=== PATIENT | female | born 1985 | race Caucasian/White ===

== ENCOUNTER 2017-05-01 18:53 | Emergency (ER) | payer MEDICARE ==
[~2017-05-01] VITALS: Ht 175.3 cm; Wt 108.6 kg
[2017-05-01 19:17] VITALS: BP 123/69; PULSE 72; RESP 20; O2SAT 98
[2017-05-01 20:02] LABS: BASOPHILS % (AUTO) 0.1 % (0-3); EOSINOPHILS % (AUTO) 0.8 % (0-5); MONOCYTES % (AUTO) 6.2 % (4-12); Mean Corpuscular Hemoglobin 28.2 pg (27.0-35.0); Mean Corpuscular Volume 87.4 fL (81-100); NEUTROPHILS % (AUTO) 60.5 % (40-74); Platelet Count 227 bil/L (150-400)
[2017-05-01 20:18] LABS: INR 0.96 ratio
--- NOTE | 2017-05-01 21:20 | ED.REPORT ---
HPI-Trauma Minor / Fall Date of Service May 01, 2017 ED Provider: Sathish Breaux MD A 32 year old female with a history of asthma, melanoma, adrenal insufficiency, PTSD and anxiety is referred to the ED from Urgent Care complaining of back pain. The pt slipped while walking down her stairs this morning and landed on her right hip and back. This caused immediate right hip and low back pain that has persisted since. She is able to walk but experiences significant pain when she does. The pt has been experiencing hip and back pain for several weeks, but the pain drastically increased after the fall. She has also been fatigued, weak and lightheaded with a decreased appetite for the last week, which she believes may be related to her fall. There have been no recent medication changes in the pt's regimen. Nursing Notes Stated Complaint: FALL/WEAKNESS-SENT BY Chief Complaint: Multiple Trauma/Fall Nursing Notes Reviewed: Yes Allergies: Coded Allergies: Penicillins (Verified Allergy, Severe, hives, 05/01/17) gabapentin (Verified Allergy, Severe, anaphylaxis, 05/01/17) iron dextran complex (Verified Allergy, Severe, anaphylaxis, 05/01/17) morphine (Verified Adverse Reaction, Severe, 05/01/17) General Time Seen by MD: 21:09 Chief Complaint Other (Back pain) Hx Obtained From: Patient Arrived By: Walk-in Onset Occurred: 9 - 12 hours ago Symptom Duration: Since onset Recent Healthcare: No recent hospitalization Similar Sx Previous: No Past Medical History Past Medical History asthma anxiety PTSD melanoma adrenal insufficiency Past Surgical History none reported Smoking History Never Smoker Social History Alcohol Use: Denies alcohol use Drug Use: Denies drug use Ambulatory Status Independent Review of Systems Constitutional: Reports: Fatigue, Weakness - generalized Respiratory: Denies: Non-productive cough, Shortness of breath Musculoskeletal: Reports: Back pain, Joint pain (right hip), Denies: Neck pain Neurologic: Reports: Lightheaded Complete sys rev & neg: except as marked. Cardiovascular: Denies: Chest pain GI: Denies: Abdominal pain, Vomiting Physical Exam Initial Vital Signs Vital Signs (First) Date Time Temp Pulse Resp B/P Pulse Ox O2 Delivery O2 Flow Rate FiO2 05/01/17 19:17 36.7 72 20 123/69 98 Room Air Initial VS: Reviewed, Vital signs normal General/Constitutional: Awake, Alert Appearance / Presentation: Positive: Obese, morbidly examination difficult due to body habitus Neck: Atraumatic, Supple, Full range of motion Head / Eyes: Atraumatic, Normocephalic, PERRL, EOMI ENT: Atraumatic, Airway patent, Mucous membranes moist Respiratory / Chest: Atraumatic, Breath sounds NL, Breath sounds = bilat, No respiratory distress Cardiovascular: Heart rate NL, Regular rhythm, Heart sounds NL Abdomen: Atraumatic, Soft, Non-tender Back: Full range of motion diffuse tenderness of the midline lower lumbar area and bilateral iliac wings Upper Extremity / MS: Atraumatic, Full range of motion Lower Extremity / Pelvis / MS: Atraumatic, Full range of motion Skin: Atraumatic, Color NL, No rash, Warm, Dry Neurologic: Oriented X3, Speech NL, No motor deficits, No sensory deficits Psychiatric: Affect NL, Mood NL Interpretation & Diagnostics Interpretation & Diagnostics: CT Pelvis: CONCLUSION: No acute fracture involving the pelvis. Lab Results Interpretation Result Diagram: 05/01/17195705/01/171957 Test 05/01/17 19:58 White Blood Count 8.4th/mm3 (3.8-10.1) Red Blood Count 4.29mil/mm3 (3.90-5.20) Hemoglobin 12.1g/dL (12.0-15.6) Hematocrit 37.5% (35.0-46.0) Mean Corpuscular Volume 87.4fL (81-100) Mean Corpuscular Hemoglobin 28.2pg (27.0-35.0) Mean Corpuscular Hemoglobin Concent 32.3% (32.0-37.0) Red Cell Distribution Width 14.5% (12.3-15.4) Platelet Count 227bil/L (150-400) Neutrophils (%) (Auto) 60.5% (40-74) Lymphocytes (%) (Auto) 32.2% (14-46) Monocytes (%) (Auto) 6.2% (4-12) Eosinophils (%) (Auto) 0.8% (0-5) Basophils (%) (Auto) 0.1% (0-3) Prothrombin Time 10.3sec (8.1-12.5) Prothromb Time International Ratio 0.96ratio Sodium Level 139mEq/L (134-144) Potassium Level 3.6mEq/L (3.5-5.2) Chloride Level 104mEq/L (97-108) Carbon Dioxide Level 20mmol/L (18-29) Blood Urea Nitrogen 10mg/dL (6-20) Creatinine 1.09mg/dL (0.57-1.00) Estimat Glomerular Filtration Rate 82mL/min (>59) Glucose Level 90mg/dL (60-99) Calcium Level 8.8mg/dL (8.5-10.1) Magnesium Level 2.0mg/dL (1.6-2.6) Total Bilirubin 0.2mg/dL (0.0-1.2) Aspartate Amino Transf (AST/SGOT) 13U/L (0-50) Alanine Aminotransferase (ALT/SGPT) 5U/L (0-32) Alkaline Phosphatase 68U/L (25-150) Total Protein 7.3g/dL (6.4-8.4) Albumin 4.4g/dL (3.4-5.0) Hold Stauffer Top Tube Received (Received) Lab values outside NL range: no clinical significance. Re-Eval/Medical Decision Med Decision/Clinical Course 32-year-old female with fall seen in urgent care and sent here. I find no dangerous cause for the fall and no significant injury resulting from fall. Re-Evaluation/Progress : Time of Eval: 22:58 Patient Status: Condition improved Re-Evaluation/Progress Note: Pt rechecked, who is resting comfortably. CT and lab results are discussed. The diagnosis and plan for discharge are discussed. The pt understands and agrees with the plan. All questions are addressed at this time. Counseled Regarding: Diagnosis, Lab results, Need for follow-up, When/why to return to ED Discharge & Departure Impression: Primary Impression: Fall (on) (from) other stairs and steps, initial encounter Additional Impression: Adrenal insufficiency Disposition: Home Discharge Condition All VS Reviewed: Yes Condition: Stable Patient Instructions: Fall Prevention (ED) Additional Instructions: CT scan of your pelvis and low back shows no fracture or dislocation. The labs are all normal. He was given a stress dose of steroids. Recommend that you resume your regular doses tomorrow. Talk to your regular doctor if you have further problems. Referrals: [facility] Scribe Attestation Portions of this note were transcribed by Josephine Naylor. I, Dr. Breaux personally performed the history, physical exam and medical decision-making; I reviewed and confirmed the accuracy of the information in the transcribed note. copies to: [facility] Sathish Breaux MD May 01, 2017 21:20 JOSEPHINE NAYLOR May 01, 2017 21:32
[2017-05-01] MEDS ORDERED: Hydrocortisone 50 mg/mL 2 mL Inj IVPUSH ONE (21:25)
[2017-05-01] MEDS ORDERED: Ketorolac 15 mg/mL Inj IV ONE (21:25)
[2017-05-01] MEDS ORDERED: 0.9% Sodium Chloride 1,000 ML IV ONE (21:25)
[2017-05-02] MEDS ORDERED: _HYDROcodone/APAP 5-325 mg Tablet PO PRN (00:05)
[2017-05-02 01:43] VITALS: BP 119/81; PULSE 60; RESP 16; O2SAT 98
--- NOTE | 2017-05-02 08:38 | DRSVH ---
PROCEDURE: CT PELVIS WITHOUT CONTRAST ([id number]) INDICATIONS: fall, right pelvic pain TECHNIQUE: Noncontrast 3 mm axial sections acquired through the bony pelvis. Additional 3 mm axial sections acq uired through the symptomatic hip joint, with coronal and sagittal reformats. COMPARISON: None. FINDINGS: Image quality: Excellent. Bones: No trauma found. Soft tissues: No cutaneous or subcutaneous contusion identified. IMPRESSION: Source of pain after fall is not found. Please note that MR scanning provides the "gold standard" for detection of hidden fractures, and if unusual symptomatology persists followup screenin g pelvic MRI would be recommended. Note: These findings are concordant with the preliminary interpretation. Dictated by: Fer Teixeira M.D. on 05/02/2017 at 8:34 Approved by: Fer Teixeira M.D. on 05/02/2017 at 8:36
== END 2017-05-02 00:10 | disposition home or self-care (01) ==
LOC: SED 18:53
DX: E27.40 Unspecified adrenocortical insufficiency (principal); W10.9XXA Fall (on) (from) unspecified stairs and steps, initial encounter; Y93.9 Activity, unspecified; Y92.9 Unspecified place or not applicable; Y99.9 Unspecified external cause status; F43.10 Post-traumatic stress disorder, unspecified; Z88.0 Allergy status to penicillin; Z88.5 Allergy status to narcotic agent; Z88.8 Allergy status to other drugs, medicaments and biological substances
CPT/HCPCS: 36415; 72192; 80053; 83735; 85025; 85610; 96361; 96374; 96375; 99284; J1720; J1885; J7030

== ENCOUNTER 2017-05-07 16:31 | Inpatient (IN) | payer MEDICARE ==
[~2017-05-07] VITALS: Ht 175.3 cm; Wt 115.0 kg
[2017-05-07 17:07] VITALS: BP 114/70; PULSE 78; RESP 14; O2SAT 98
--- NOTE | 2017-05-07 18:22 | ED.REPORT ---
HPI-General Illness Date of Service May 07, 2017 ED Provider: Bartolo Bearden DO Patient is a 32 year old female with a history of adrenal insufficiency and melanoma who presents to the ED complaining of fatigue for the past three weeks. Associated symptoms include lightheadedness, nausea, vomiting and headache. Patient denies diarrhea, dysuria, shortness of breath, cough or fever. She states that she just "does not feel right". The patient reports that she got a dose of iron and steroids early last week and started to feel slightly improved but then started vomiting 5 days ago. She states that she has vomited several times today. Nursing Notes Stated Complaint: ADRENAL INSUFFICIENCY, LIGHT HEADED, WEAK Chief Complaint: General Complaint Nursing Notes Reviewed: Yes Allergies: Coded Allergies: Penicillins (Verified Allergy, Severe, hives, 05/07/17) egg (Verified Allergy, Severe, Anaphylaxis, 05/07/17) gabapentin (Verified Allergy, Severe, anaphylaxis, 05/07/17) iron dextran complex (Verified Allergy, Severe, anaphylaxis, 05/07/17) morphine (Verified Adverse Reaction, Severe, 05/07/17) Scheduled Ascorbate Calcium (Vitamin C) 500 Mg Tablet 500 MG PO DAILY Budesonide (Pulmicort Flexhaler) 60 Puff/Inh Inhaler 2 PUFFS PO BID Cyanocobalamin (Vitamin B-12) (Vitamin B-12) 1,000 Mcg Tablet 2,000 MCG PO BID Ergocalciferol (Vitamin D2) (Vitamin D2) 2,000 Unit Tablet 50,000 UNIT PO DAILY Ferrous Gluconate (Ferrous Gluconate) 324 Mg Tab 648 MG PO DAILY Fludrocortisone Acetate (Fludrocortisone Acetate) 0.1 Mg Tablet 0.1 MG PO DAILY Hydrocortisone (Hydrocortisone) 10 Mg Tablet 40 MG PO DAILY Prazosin (Prazosin) 2 Mg Capsule 4-6 MG PO HS Sertraline HCl (Sertraline) 100 Mg Tablet 200 MG PO HS Topiramate (Topiramate) 25 Mg Tablet 50 MG PO DAILY Topiramate (Topiramate) 25 Mg Tablet 25 MG PO HS Scheduled PRN Albuterol HFA (Proair HFA) 8.5 Gm Hfa.aer.ad 2 PUFFS INHALATION Q4H PRN PRN ASTHMA Albuterol Neb Soln (Albuterol Neb Soln) 2.5 Mg/3 Ml Vial.neb 2.5 MG INHALATION Q4H PRN PRN ASTHMA Epinephrine (Epipen 2-Selvin) 0.3 Mg/0.3 Ml Auto.injct 0.3 MG IJ DIRECTED PRN PRN ALLERGY Hydrocodone-Acetaminophen 5-325 mg (Hydrocodone-Acetaminophen 5-325 mg) 1 Each Tablet 1 TABLET PO Q4H PRN PRN For Pain Ibuprofen (Ibuprofen) 200 Mg Capsule 400 MG PO BID PRN PRN For Pain Ondansetron ODT (Ondansetron ODT) 8 Mg Tab.rapdis 8 MG PO TID PRN PRN For Nausea Trazodone (Trazodone) 100 Mg Tablet 100-150 MG PO HS PRN PRN INSOM General Time Seen by MD: 18:09 Chief Complaint Other (fatigue) Hx Obtained From: Patient Arrived By: Walk-in Sudden in Onset?: No Onset Occurred: More than a week ago... (3 weeks) Symptom Duration: Since onset Recent Healthcare: Recent doctor visit Similar Sx Previous: Yes Past Medical History Past Medical History asthma anxiety PTSD melanoma adrenal insufficiency Past Surgical History kidney stent left shoulder repair Reports: (x2), Tonsillectomy Smoking History Never Smoker Social History Alcohol Use: Denies alcohol use Drug Use: Denies drug use Ambulatory Status Independent Review of Systems Full Review of Systems Constitutional: Reports: Fatigue, Malaise, Denies: Chills, Fever Respiratory: Denies: Non-productive cough, Shortness of breath GI: Reports: Nausea, Vomiting, Denies: Diarrhea Female: Denies: Dysuria, Skin: Denies Itching, Denies Rash Neurologic: Reports: Headache, Lightheaded Complete sys rev & neg: except as marked. Physical Exam Vital Signs Vital Signs Date Time Temp Pulse Resp B/P Pulse Ox O2 Delivery O2 Flow Rate FiO2 05/07/17 20:30 63 14 112/71 94 Room Air 05/07/17 17:07 36.8 78 14 114/70 98 Room Air Initial VS: Reviewed General/Constitutional: Awake, Alert palor Head / Eyes: Atraumatic, Normocephalic, PERRL, EOMI Neck: Atraumatic, Supple Respiratory / Chest: Atraumatic, Breath sounds NL, Breath sounds = bilat, No respiratory distress Cardiovascular: Heart rate NL, Regular rhythm, Heart sounds NL Skin: Atraumatic, Color NL, No rash, Warm, Dry Neurologic: Oriented X3, Speech NL, No motor deficits, No sensory deficits Psychiatric: Affect NL, Mood NL Interpretation & Diagnostics Lab Results Interpretation Result Diagram: 05/07/179 05/07/17 185 Test 05/07/17 18:59 05/07/17 20:31 White Blood Count 7.9th/mm3 (3.8-10.1) Red Blood Count 4.42mil/mm3 (3.90-5.20) Hemoglobin 12.4g/dL (12.0-15.6) Hematocrit 38.6% (35.0-46.0) Mean Corpuscular Volume 87.3fL (81-100) Mean Corpuscular Hemoglobin 28.1pg (27.0-35.0) Mean Corpuscular Hemoglobin Concent 32.1% (32.0-37.0) Red Cell Distribution Width 14.4% (12.3-15.4) Platelet Count 200bil/L (150-400) Neutrophils (%) (Auto) 58.9% (40-74) Lymphocytes (%) (Auto) 33.2% (14-46) Monocytes (%) (Auto) 6.4% (4-12) Eosinophils (%) (Auto) 0.8% (0-5) Basophils (%) (Auto) 0.3% (0-3) Sodium Level 142mEq/L (134-144) Potassium Level 4.2mEq/L (3.5-5.2) Chloride Level 105mEq/L (97-108) Carbon Dioxide Level 22mmol/L (18-29) Blood Urea Nitrogen 9mg/dL (6-20) Creatinine 1.10mg/dL (0.57-1.00) Estimat Glomerular Filtration Rate 81mL/min (>59) Glucose Level 91mg/dL (60-99) Lactic Acid Level 0.5mmol/L (0.4-2.0) Calcium Level 9.1mg/dL (8.5-10.1) Magnesium Level 2.0mg/dL (1.6-2.6) Total Bilirubin 0.2mg/dL (0.0-1.2) Aspartate Amino Transf (AST/SGOT) 15U/L (0-50) Alanine Aminotransferase (ALT/SGPT) 5U/L (0-32) Alkaline Phosphatase 62U/L (25-150) Total Protein 7.1g/dL (6.4-8.4) Albumin 4.4g/dL (3.4-5.0) Lipase 31U/L (13-60) Thyroid Stimulating Hormone (TSH) 2.330uIU/mL (0.450-4.500) Urine Color Yellow (YELLOW) Urine Appearance Clear (CLEAR,HAZY) Urine pH 5.5 (5.0-8.0) Urine Specific [place] 1.010 (1.003-1.035) Urine Protein Negativemg/dL (NEG,TRACE) Urine Glucose (UA) Negativemg/dL (NEGATIVE) Urine Ketones Negativemg/dL (NEGATIVE) Urine Occult Blood Negative (NEGATIVE) Urine Nitrite Negative (NEGATIVE) Urine Bilirubin Negative (NEGATIVE) Urine Urobilinogen Normalmg/dL (NORMAL) Urine Leukocyte Esterase Trace (NEGATIVE) Urine RBC 0-2/hpf (0-2) Urine WBC 0-5/hpf (0-5) Urine Epithelial Cells Moderate/hpf (NONE-MOD) Urine Crystals None seen (NONE SEEN) Urine Bacteria None/hpf (NONE-FEW) Urine Hyaline Casts None/lpf (NONE) Urine Granular Casts None seen (NONE SEEN) Urine Waxy Casts None seen (NONE SEEN) Urine Red Blood Cell Casts None seen (NONE SEEN) Urine White Blood Cell Casts None seen (NONE SEEN) Urine Mucus None seen (None Seen) Urine Trichomonas None seen (NONE SEEN) Urine Yeast None (NONE SEEN) Urinalysis Comment None Urine Culture Reflexed Indicated Urine HCG, Qualitative Negative (Negative) X-Ray Chest Interpretation Chest Xray Interpretation: IMPRESSION: No acute cardiopulmonary disease process. Dictated by: Agnieszka Marmolejo MD, PhD on 05/07/2017 at 20:57 Approved by: Agnieszka Marmolejo MD, PhD on 05/07/2017 at 20:57 View: Portable, 1 view Interpretation / Wet Read by: Interpret - Radiologist CT Head Interpretation IMPRESSION: No acute intracranial disease process. Dictated by: Agnieszka Marmolejo MD, PhD on 05/07/2017 at 21:48 Approved by: Agnieszka Marmolejo MD, PhD on 05/07/2017 at 21:50 Study: Head CT no contrast Interpretation / Wet Read by: Interpret - Radiologist Re-Eval/Medical Decision Med Decision/Clinical Course Patient reports a severe headache and history of melanoma, plan for CT. Head CT was negative. Plan to admit for obs with steroids. Intractable nausea and vomiting in spite of IV antiemetics. She is not tolerant oral steroids at this time. She will be admitted for IV hydration and IV steroids. Time of Eval: 21:16 Patient Status: No relief Re-Evaluation/Progress Note: Discussed labs, plan for admit and CT. Patient understands and agrees to plan. All questions were addressed. Consultation : Referral / Consult Name: Jose Hathaway MD Consulted With: Hospitalist Call Returned at: 21:35 Veneer Stock Layer: Agrees with eval, Agrees with plan, Accepts admit Counseled Regarding: Diagnosis, Lab results, Need for admission Discharge & Departure Primary Impression: Adrenal insufficiency Additional Impressions: Vomiting Vomiting type: unspecified Vomiting Intractability: non-intractable Nausea presence: with nausea Qualified Code: R11.2 - Nausea with vomiting, unspecified Headache Headache type: unspecified Headache chronicity pattern: acute headache Intractability: not intractable Qualified Code: R51 - Headache Disposition: ADMITTED TO HOSPITAL Discharge Condition All VS Reviewed: Yes Condition: Stable Referrals: [facility] (PCP) Og Attestation Portions of this note were transcribed by Ayala Spears. I, Dr. Bearden personally performed the history, physical exam and medical decision-making; I reviewed and confirmed the accuracy of the information in the transcribed note. Signed by: Og Webster, 05/07/17 Bartolo Bearden DO May 07, 2017 18:22 Alissa Spears May 07, 2017 18:41
[2017-05-07] MEDS ORDERED: 0.9% Sodium Chloride 1,000 ML IV ONE (18:24)
[2017-05-07] MEDS ORDERED: HYDROmorphone 0.5 mg/0.5 mL iSecure Syringe IVPUSH PRN (18:25)
[2017-05-07 19:05] LABS: BASOPHILS % (AUTO) 0.3 % (0-3); EOSINOPHILS % (AUTO) 0.8 % (0-5); MONOCYTES % (AUTO) 6.4 % (4-12); Mean Corpuscular Hemoglobin 28.1 pg (27.0-35.0); Mean Corpuscular Volume 87.3 fL (81-100); NEUTROPHILS % (AUTO) 58.9 % (40-74); Platelet Count 200 bil/L (150-400)
[2017-05-07] MEDS ORDERED: 0.9% Sodium Chloride 1,000 ML IV SCH (19:05)
[2017-05-07] MEDS ORDERED: Hydrocortisone 50 mg/mL 2 mL Inj IVPUSH ONE (19:05)
[2017-05-07] MEDS ORDERED: HYDROmorphone 0.5 mg/0.5 mL iSecure Syringe IVPUSH ONE (19:15)
[2017-05-07] MEDS: Ondansetron 2 mg/mL 2 mL Inj IVPUSH PRN ×2 (19:19→20:31)
[2017-05-07 20:30] VITALS: BP 112/71; PULSE 63; RESP 14; O2SAT 94
[2017-05-07] MEDS ORDERED: Promethazine Inj 12.5 MG in 0.9% Sodium Chloride-Pha MIX 100 ML IV ONE (20:30)
[2017-05-07] MEDS ORDERED: Promethazine Inj 12.5 MG in 0.9% Sodium Chloride-Pha MIX 100 ML IV PRN (20:40)
[2017-05-07 20:44] LABS: APPEARANCE,URINE CLEAR (CLEAR,HAZY); COLOR,URINE YELLOW (YELLOW); PH,URINE 5.5 (5.0-8.0)
[2017-05-07 20:45] LABS: OCCULT BLOOD,URINE NEGATIVE (NEGATIVE); UROBILINOGEN,URINE NORMAL (NORMAL)
--- NOTE | 2017-05-07 20:59 | DRSVH ---
PROCEDURE: X-RAY CHEST ONE VIEW, PORTABLE ([id number]) INDICATIONS: weak, chills, adrenal insuf. TECHNIQUE: One view of the chest was acquired. COMPARISON: None. FINDINGS: Surgical changes and devices: None. Lungs and pleura: No pleural effusions or pneumothorax. Lungs are clear. Mediastinum: Mediastinal contours appear normal. Heart size is normal. Bones and chest wall: No suspicious bony lesions. Overlying soft tissues appear unremarkable. IMPRESSION: No acute cardiopulmonary disease process. Dictated by: Agnieszka Marmolejo MD, PhD on 05/07/2017 at 20:57 Approved by: Agnieszka Marmolejo MD, PhD on 05/07/2017 at 20:57
[2017-05-07] MEDS ORDERED: Polyethylene Glycol (PEG) 17 Gm Powder PO PRN (21:45)
[2017-05-07] MEDS ORDERED: Alum-Mag Hydrox-Simeth 30 mL Suspension PO PRN (21:45)
--- NOTE | 2017-05-07 21:52 | DRSVH ---
PROCEDURE: CT BRAIN WITHOUT CONTRAST ([id number]) INDICATIONS: headache, vomiting , cancer TECHNIQUE: Noncontrast 4.5 mm thick angled axial sections acquired from the foramen magnum to the vertex, with c oronal reformats. COMPARISON: None. FINDINGS: Image quality: Excellent. CSF spaces: Basal cisterns are patent. No extra-axial fluid collections. Ventricles are normal in size and shape. Brain: No midline shift. No intracranial masses or hemorrhage. [place]-white matter interface is norm al. Skull and face: Calvarium and visualized facial bones are intact, without suspicious lesions. Sinuses: Visualized sinuses and mastoids are clear. IMPRESSION: No acute intracranial disease process. Dictated by: Agnieszka Marmolejo MD, PhD on 05/07/2017 at 21:48 Approved by: Agnieszka Marmolejo MD, PhD on 05/07/2017 at 21:50
[2017-05-07] MEDS ORDERED: _Albuterol 2.5 mg/3 mL Neb NEB PRN (22:15)
[2017-05-07] MEDS ORDERED: HYDR10TA12 PO (22:17)
[2017-05-07] MEDS ORDERED: IBUP200C PO (22:17)
[2017-05-07] MEDS ORDERED: ERGO2000 PO (22:17)
[2017-05-07] MEDS ORDERED: SERT100T9 PO (22:17)
[2017-05-07] MEDS ORDERED: ALBU8.5H2 INHALATION (22:17)
[2017-05-07] MEDS ORDERED: ONDA8TAB10 PO (22:17)
[2017-05-07] MEDS ORDERED: PRAZ2CAP2 PO (22:17)
[2017-05-07] MEDS ORDERED: CYAN10008 PO (22:17)
[2017-05-07] MEDS ORDERED: ASCO-294 PO (22:17)
[2017-05-07] MEDS ORDERED: BDS.4IN PO (22:17)
[2017-05-07] MEDS ORDERED: FEG324 PO (22:17)
[2017-05-07] MEDS ORDERED: TOPI-59 PO ×2 (22:17)
[2017-05-07] MEDS ORDERED: TRAZ-118 PO (22:17)
[2017-05-07] MEDS ORDERED: HYDR-4003 PO (22:17)
[2017-05-07] MEDS ORDERED: ALBU2.5V4 INHALATION (22:17)
[2017-05-07] MEDS ORDERED: EPIN0.3P2 IJ (22:19)
[2017-05-07] MEDS ORDERED: FLUD0.1T PO (22:19)
--- NOTE | 2017-05-07 22:22 | PCM.HPMED ---
Subjective Date of Service May 07, 2017 Primary Provider: Admitting Physician: Jose Hathaway MD Primary Care Physician: Santiago Attending Physician: Jose Hathaway MD Chief Complaint: Fatigue, nausea, vomiting History of Present Illness: 32-year-old woman with history of primary adrenal insufficiency, asthma, and hospitalizations for adrenal insufficiency requiring IV steroids and fluids presents with a week and a half of worsening fatigue, nausea, lightheadedness. She was seen in the emergency department 6 days ago by referral from urgent care after having a fall and hurting her hip, at that time she received stress dose of hydrocortisone and fluids she said that she felt better transiently but today she was unable to get up due to fatigue and weakness, she has been vomiting, she has had a cough, she has had a rash that she has been treating with topical hydrocortisone cream that has been moving around her body she describes as itchy with red bumps. 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 She has had increasing chills, no weight gain, endorses headache and is concerned by it because it is more severe than they typically are, she is describing auras and scotoma coming and going. She increased to her stress dose of hydrocortisone at home but has been vomiting it up. She has not been able to keep down any food or water for the past few days and describes her vomit as just being mucus, last episode of emesis was one hour ago in the emergency department for which she received promethazine and ondansetron. She has had hospitalizations for adrenal insufficiency which she described as lasting 3-4 days and she is sent home on a PICC line or fluids and IV corticosteroids for up to 6 weeks, she recounts this happens about 3-4 times a year. She states her headache has never been this bad. The ER vitals were completely normal Hematology was pristine, CMP is without abnormality other than creatinine 1.1. Lactic acid 0.5, TSH 2.33, liver enzymes normal. Urinalysis trace leukocyte esterase without ketones, moderate epithelial cells. HCG negative. Chest x-ray was normal Brain CT showed no acute intracranial disease process. Patient admitted for adrenal insufficiency necessitating IV corticosteroids fluids. Review of Systems: A comprehensive review of systems was conducted with the patient and found to be negative except as above in the history of presenting illness. Allergies Coded Allergies: Penicillins (Verified Allergy, Severe, hives, 05/07/17) egg (Verified Allergy, Severe, Anaphylaxis, 05/07/17) gabapentin (Verified Allergy, Severe, anaphylaxis, 05/07/17) iron dextran complex (Verified Allergy, Severe, anaphylaxis, 05/07/17) morphine (Verified Adverse Reaction, Severe, 05/07/17) Home Medications Scheduled Ascorbate Calcium (Vitamin C) 500 Mg Tablet 500 MG PO DAILY Budesonide (Pulmicort Flexhaler) 60 Puff/Inh Inhaler 2 PUFFS PO BID Cyanocobalamin (Vitamin B-12) (Vitamin B-12) 1,000 Mcg Tablet 2,000 MCG PO BID Ergocalciferol (Vitamin D2) (Vitamin D2) 2,000 Unit Tablet 50,000 UNIT PO DAILY Ferrous Gluconate (Ferrous Gluconate) 324 Mg Tab 648 MG PO DAILY Fludrocortisone Acetate (Fludrocortisone Acetate) 0.1 Mg Tablet 0.1 MG PO DAILY Hydrocortisone (Hydrocortisone) 10 Mg Tablet 40 MG PO DAILY Prazosin (Prazosin) 2 Mg Capsule 4-6 MG PO HS Sertraline HCl (Sertraline) 100 Mg Tablet 200 MG PO HS Topiramate (Topiramate) 25 Mg Tablet 50 MG PO DAILY Topiramate (Topiramate) 25 Mg Tablet 25 MG PO HS Scheduled PRN Albuterol HFA (Proair HFA) 8.5 Gm Hfa.aer.ad 2 PUFFS INHALATION Q4H PRN PRN ASTHMA Albuterol Neb Soln (Albuterol Neb Soln) 2.5 Mg/3 Ml Vial.neb 2.5 MG INHALATION Q4H PRN PRN ASTHMA Epinephrine (Epipen 2-Selvin) 0.3 Mg/0.3 Ml Auto.injct 0.3 MG IJ DIRECTED PRN PRN ALLERGY Hydrocodone-Acetaminophen 5-325 mg (Hydrocodone-Acetaminophen 5-325 mg) 1 Each Tablet 1 TABLET PO Q4H PRN PRN For Pain Ibuprofen (Ibuprofen) 200 Mg Capsule 400 MG PO BID PRN PRN For Pain Ondansetron ODT (Ondansetron ODT) 8 Mg Tab.rapdis 8 MG PO TID PRN PRN For Nausea Trazodone (Trazodone) 100 Mg Tablet 100-150 MG PO HS PRN PRN INSOM PMH asthma anxiety PTSD melanoma adrenal insufficiency Surgical History Kidney stents Tonsillectomy Left shoulder repair C-sections 2 Multiple melanoma removals from left face, reports having this done yearly. Family History Mother: Trigeminal neuralgia, hypothyroidism. Father: Homeless, alcohol abuse. Social History Hx Alcohol Use: No Hx Substance Use: No Smoking Status: Never Smoker Exam Vital Signs Vital Sign - Last Date Time Temp Pulse Resp B/P Pulse Ox O2 Delivery O2 Flow Rate FiO2 05/07/17 20:30 63 14 112/71 94 Room Air 05/07/17 17:07 36.8 Exam General: Laying in bed, asleep, easily awoken to verbal stimuli. Obese HEENT: Facial asymmetry secondary to multiple surgeries to left divine-face, EOMI grossly, pupils equal round and reactive bilaterally, because membranes moist, conjunctiva pink, Cardiovascular: Regular rate and rhythm, no clicks murmurs rubs, peripheral pulses 2/4 equal bilaterally Pulmonary: Clear to auscultation bilaterally, no W/R/R. Abdominal: Soft to palpation, bowel sounds present 4, no hepatosplenomegaly. Negative rebound. Extremities: No edema appreciated. No tenderness, asymmetry. Neuro: Neurologically grossly intact, strength is equal bilaterally upper and lower extremities. MSK: Able to move extremities on their own volition, strength 4 out of 5 equal bilaterally to upper and lower extremities. Psych: AO4, tired affect. Speech is normal, nonpressured, not slurring. Lab and Diagnostics Result Diagram: 05/07/[id number]/07/171858 X-Rays, CTs and MRIs Chest x-ray performed 05/07/2017 IMPRESSION: No acute cardiopulmonary disease process. Dictated by: Agnieszka Marmolejo MD, PhD on 05/07/2017 at 20:[address] without contrast performed 05/07/2017 IMPRESSION: No acute intracranial disease process. 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 Acute on chronic adrenal insufficiency, present on admission, active Evidenced Worsening fatigue, nausea, vomiting, weakness, headaches, unable to keep down home hydrocortisone. Attributed to viral gastritis. Blood pressure stable, no hyperpigmentation. Received 100 mg IV hydrocortisone succinate in the emergency department, IV fluids Hydrocortisone succinate IV 100 mg every 6 hours Assess Serum vitamin D level- patient reportedly on 50,000 international units a day. Hold home fludrocortisone Assessment electrolytes every morning Acute viral illness, present on admission, active Nausea, vomiting, abdominal pain, white blood cell count is normal, she also claims to have a dry cough that was not appreciated during exam, additionally has a transient petechial pruritic rash that is responsive to hydrocortisone cream. No diarrhea Respiratory PCR viral panel IV fluids, normal saline Promethazine and ondansetron as needed for nausea Acute on chronic migraine, present on admission, active Patient describes auras, scotomas, throbbing. Likely precipitated by dehydration and physiologic stress Patient takes topiramate for treatment and prophylaxis, will continue. Acetaminophen, IV fluids. EKG to assess QTC before administering additional abortive medications. ( Benadryl 25 mg IV followed by Compazine 10 mg IV, with additional 30 mg IV Toradol if necessary.) Chronic asthma, present on admission, Stable Continue Pulmicort as needed Continue albuterol inhaler as needed Continue albuterol nebulizer as needed Chronic anxiety and PTSD, POA, Stable Continue sertraline, prazosin, trazodone EKG to assess QTC Chronic obesity, present on admission, active BMI 35.8 Dietitian consult ordered. Patient admitted to inpatient status with anticipated length of stay greater than 2 mid nights, based on complexity of symptoms, treatment, and anticipated complications. GI prophylaxis with famotidine DVT prophylaxis subcutaneous heparin Pain management acetaminophen, topiramate. Pain Evaluation: Pain not Controlled GI Prophylaxis: H2 nathalie VTE Prophylaxis: Sub-Q Heparin (Unfractionated) Resuscitation Status: CPR: Attempt Resuscitation Attending Statement The patient was seen and examined together with Dr. Adorno on 05/07 and I agree with the history, exam and plan as outlined in the note above. Ki Lares DO May 07, 2017 22:22 Jose Hathaway MD May 08, 2017 02:37
[2017-05-07 22:30] VITALS: BP 114/77; PULSE 66; RESP 16; O2SAT 96
[2017-05-07] MEDS: 0.9% Sodium Chloride 1,000 ML IV SCH (23:42)
[2017-05-08] MEDS: Ondansetron 2 mg/mL 2 mL Inj IVPUSH PRN ×5 (00:05→18:52)
[2017-05-08] MEDS: Heparin 5,000 Unit/mL Inj SUBQ SCH ×3 (00:08→17:49)
[2017-05-08] MEDS ORDERED: HYDROmorphone 1 mg/mL Inj IVPUSH ONE (00:55)
[2017-05-08] MEDS: Promethazine Inj 12.5 MG in Dextrose 5%-Pha MIX 50 ML IV PRN ×2 (01:46→07:01)
--- NOTE | 2017-05-08 02:38 | NUR ---
Arrival to the unit Patient arrived to floor at 2220 via ED gurney. A&OX3, and able to ambulate to hospital bed via SBA. Complains of abd pain, a headache and nausea. Tylenol PO given, but upon reassessment patient states no relief was provided. paged to notify of patients condition, and received orders for 1mg Dilaudid IVP once, a K-pad, and IV Phenergan due to patient getting better relief from it than zofran. Upon reassessment of IV Dilaudid the patient states that the pain is still present, but the throbbing in her head that she was experiencing has subsided. Patient has also been able to get enough relief to fall asleep as well at this time. IV NS is running at 125cc/hr, rand alarm is on due to previous fall, and bed is in locked and low position. Will continue to monitor and continue Q1 hour checks.
[2017-05-08 02:45] VITALS: BP 103/69; PULSE 63; RESP 16; O2SAT 95
[2017-05-08] MEDS: Hydrocortisone 50 mg/mL 2 mL Inj IVPUSH SCH ×3 (02:56→14:30)
[2017-05-08] MEDS ORDERED: Ketorolac 15 mg/mL Inj IVPUSH ONE (05:05)
[2017-05-08 05:34] LABS: BASOPHILS % (AUTO) 0.1 % (0-3); EOSINOPHILS % (AUTO) 0.3 % (0-5); MONOCYTES % (AUTO) 2.9 % (4-12); Mean Corpuscular Hemoglobin 28.1 pg (27.0-35.0); Mean Corpuscular Volume 88.4 fL (81-100); NEUTROPHILS % (AUTO) 74.4 % (40-74); Platelet Count 184 bil/L (150-400)
[2017-05-08 06:38] VITALS: BP 117/73; PULSE 67; RESP 18; O2SAT 96
[2017-05-08] MEDS ORDERED: Albuterol 2.5 mg/3 mL Inhalation Solution NEB PRN (07:00)
[2017-05-08] MEDS: Ascorbic Acid 500 mg Tablet PO SCH (07:50)
[2017-05-08] MEDS: Fluticasone 100 mCg Inhaler INHALATION SCH ×2 (08:01→22:59)
[2017-05-08] MEDS: Famotidine Inj 20 MG in IV Premix 1 EACH IV SCH ×2 (08:04→21:40)
[2017-05-08 08:15] VITALS: BP 111/74; PULSE 64; RESP 14; O2SAT 96
--- NOTE | 2017-05-08 09:08 | NUR ---
Social work note - Initial Assessment Carolynn Dinh is a 32 yr old who was admitted for adrenal insufficiency - intractable vomiting. EMR reviewed: Pt has Medicare, Her PCP recently switched - [facility]. No DPOA - [employer] provided paperwork and education. No VA or LTC insurance. Se attached CM initial assessment - Readmit score not available. [employer] COUNTER MANAGER met with pt - introduced D/C planning and explained SW role. Pt lives at home in [place] with her two children ages 14,4. She works at [employer]. She is independent at baseline, no DME. She states that she has close friends who are helping with her kids while she is admitted. Pt plans to d/c home with no anticipated needs. [employer] MA[employer]GER provided support and will follow if needs arise. Plan: Home with friend in POV - No needs identified. HAZEL Beatty Addendum: 05/08/17 at 0950 by ALKA BRIGHT Amended: Links added.
[2017-05-08] MEDS: 0.9% Sodium Chloride 1,000 ML IV SCH ×3 (10:12→23:54)
[2017-05-08] MEDS: HYDROmorphone 0.5 mg/0.5 mL iSecure Syringe IVPUSH PRN ×3 (10:12→21:47)
[2017-05-08 10:22] LABS: BASOPHILS % (AUTO) 0.1 % (0-3); EOSINOPHILS % (AUTO) 0 % (0-5); MONOCYTES % (AUTO) 2.6 % (4-12); Mean Corpuscular Hemoglobin 27.9 pg (27.0-35.0); Mean Corpuscular Volume 87.3 fL (81-100); NEUTROPHILS % (AUTO) 82.4 % (40-74); Platelet Count 195 bil/L (150-400)
[2017-05-08 10:54] LABS: Unsaturated Iron Binding 84.4 ug/dL
[2017-05-08] MEDS: Promethazine Inj 12.5 MG in 0.9% Sodium Chloride 100 ML IV PRN ×3 (11:51→22:19)
--- NOTE | 2017-05-08 14:26 | PCM.PNMED ---
Subjective Date of Service May 08, 2017 Subjective Complains of ongoing abdominal pain and nausea. Denies any other new issues/ complaints Exam Vital Signs Vital Sign - Last Date Time Temp Pulse Resp B/P Pulse Ox O2 Delivery O2 Flow Rate FiO2 05/08/17 08:15 37.0 64 14 111/74 96 Room Air Intake and Output 05/07/17 05/07/17 05/08/17 Cumulative From/Thru 15:00 23:00 07:00 05/07/17 17:07 - 05/08/17 06:56 Intake Total 2000 ml 1865 ml 3865 ml Output Total 725 ml 725 ml Balance 2000 ml 1140 ml 3140 ml Intake Oral 1072 ml 1072 ml IV Total 2000 ml 793 ml 2793 ml Output Urine Total 725 ml 725 ml # Voids 2 2 # Bowel Movements 0 0 General: Alert, Oriented X3, Cooperative, No Acute Distress Head: Normal Eyes: Scleral Anicteric Nose: Mucous Membr Moist/[place] Mouth: Mucous Membr Moist/[place] Neck: Supple Chest & Lungs: Chest Wall Normal, Clear to auscultation & percussion Cardiovascular: Regular Rate/Rhythm Pulses: NL carotid, radial, femoral, DP, PT Abdomen: Tender, Non-distended, Normoactive bowel tones, Soft Extremities: No cyanosis/clubbing/edma bilat Neurological: Grossly Neurologically Intact, Normal Speech IVs and Medications Medications Reviewed: Medications were reviewed in detail Lab and Diagnostics Result Diagram: 05/08/17 1013 05/08/17 0436 X-Rays, CTs and MRIs Chest x-ray performed 05/07/2017 IMPRESSION: No acute cardiopulmonary disease process. Dictated by: Agnieszka Marmolejo MD, PhD on 05/07/2017 at 20:[address] without contrast performed 05/07/2017 IMPRESSION: No acute intracranial disease process. 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 # Acute on chronic abdominal pain with associated nausea/vomiting, present on admission. Ongoing - Reviewed records from her recent PCP visit at [facility]. - ? If presenting symptoms due to irritable bowel syndrome vs acute viral gastroenteritis vs other - Continue with supportive care including IV Dilaudid prn - Will check CT abdomen. If unrevealing and symptoms persist will consider further GI consult # Acute on chronic adrenal insufficiency, present on admission, active - Evidenced Worsening fatigue, nausea, vomiting, weakness, headaches, unable to keep down home hydrocortisone. - Blood pressure stable, no hyperpigmentation. - Received 100 mg IV hydrocortisone succinate in the emergency department, IV fluids - Hydrocortisone succinate IV 100 mg every 6 hours continued on admission but will try to restart home PO meds # Suspected acute viral illness on admission. - No obvious source of infection - Continue with supportive care including promethazine and ondansetron as needed for nausea # Acute on chronic migraine, present on admission, active - Patient takes topiramate for treatment and prophylaxis, will continue. - Acetaminophen, IV fluids. # Chronic asthma, present on admission, Stable - Continue Pulmicort as needed - Continue albuterol inhaler as needed - Continue albuterol nebulizer as needed # Chronic anxiety and PTSD, POA, Stable - Continue sertraline, prazosin, trazodone # Chronic obesity, present on admission, active - BMI 35.8 - Dietitian consult ordered. Dispo: 1-2 days GI Prophylaxis: H2 nathalie VTE Prophylaxis: Sub-Q Heparin (Unfractionated) VTE Mechanical Devices: Intermittant Pneumatic CD Resuscitation Status: CPR: Attempt Resuscitation Colt Connell May 08, 2017 14:26 Patient admitted to inpatient status with anticipated length of stay greater than 2 mid nights, based on complexity of symptoms, treatment, and anticipated complications. GI prophylaxis with famotidine DVT prophylaxis subcutaneous heparin Pain management acetaminophen, topiramate. GI Prophylaxis: H2 nathalie VTE Prophylaxis: Sub-Q Heparin (Unfractionated) VTE Mechanical Devices: Intermittant Pneumatic CD Resuscitation Status: CPR: Attempt Resuscitation Colt Connell May 08, 2017 14:26
[2017-05-08 14:30] VITALS: BP 102/66; PULSE 60; RESP 18; O2SAT 97
[2017-05-08] MEDS: Hydrocortisone 10 mg Tablet PO SCH (17:41)
--- NOTE | 2017-05-08 18:35 | NUR ---
Nausea Pt A/0 x3. Pt complains of nausea, administering Zofran q4 and Phenergan q4. Tolerated jello, however had emesis x1 after eating a popsicle after her jello. Also, complains of pain 7-9/10, administering IV Dilaudid q4 along with po APAP 650mg q6 with good effect. Has abdominal/pelvis CT ordered for this evening. Pt is slowly working on po contrast for scan.
--- NOTE | 2017-05-08 19:46 | DRSVH ---
PROCEDURE: CT ABDOMEN AND PELVIS WITH CONTRAST ([id number]) INDICATIONS: abd pain TECHNIQUE: After the administration of oral and intravenous contrast, 5 mm thick sections acquired from the diap hragms to the symphysis. 5 mm thick coronal and sagittal reformats were performed. For radiation do se reduction, the following was used: automated exposure control, adjustment of mA and/or kV accordi ng to patient size. COMPARISON: [facility], CT, CT PELVIS WO CON, 05/01/2017, 22:13. FINDINGS: Image quality: Excellent. ABDOMEN: Lung bases: Lung bases are clear. Heart size is normal. Solid organs: Liver and spleen are normal in size and enhancement. Gallbladder appears normal. Ashil iary system is non-dilated. Pancreas enhances normally. No adrenal nodules. Kidneys are normal in size and enhancement, without hydronephrosis. Peritoneum and bowel: Stomach, small bowel, and colon loops are normal in caliber and wall thickness . No free fluid or air. Nodes and vessels: No retroperitoneal or mesenteric adenopathy. Aorta and inferior vena cava are no rmal in caliber. Miscellaneous: No ventral hernias. PELVIS: Genitourinary: Bladder wall thickness is normal. Miscellaneous: No inguinal hernias or adenopathy. Bones: No suspicious bony lesions. No vertebral body compression fractures. IMPRESSION: Normal appendix found, no sign of biliary distention, no urinary tract abnormality seen. Source of current symptoms is not found. Dictated by: Fer Teixeira M.D. on 05/08/2017 at 19:44 Approved by: Fer Teixeira M.D. on 05/08/2017 at 19:45
[2017-05-08 20:08] VITALS: BP 112/74; PULSE 53; RESP 16; O2SAT 95
[2017-05-09] MEDS: Ondansetron 2 mg/mL 2 mL Inj IVPUSH PRN ×6 (00:24→23:21)
[2017-05-09] MEDS: Promethazine Inj 12.5 MG in 0.9% Sodium Chloride 100 ML IV PRN (02:26)
[2017-05-09] MEDS: HYDROmorphone 0.5 mg/0.5 mL iSecure Syringe IVPUSH PRN ×4 (03:37→22:43)
[2017-05-09 05:47] VITALS: BP 108/72; PULSE 74; RESP 18; O2SAT 99
--- NOTE | 2017-05-09 05:56 | NUR ---
Nausea / pain Moderate nausea adequately controlled with alternating Zofran and Phenergan Q4 hours each. Tolerated eating several jellos and crackers, anticipating ordering breakfast in am; no emesis in night. Pain marginally controlled with alternating Tylenol and IV Dilaudid Q6 hours each. Observed able to get some intermittent sleep through night. Hourly rounding ongoing.
[2017-05-09] MEDS: Promethazine Inj 12.5 MG in 0.9% Sodium Chloride 50 ML IV PRN ×4 (06:17→20:57)
[2017-05-09 07:49] VITALS: BP 104/64; PULSE 63; RESP 18; O2SAT 97
[2017-05-09] MEDS: 0.9% Sodium Chloride 1,000 ML IV SCH ×2 (08:39→18:33)
[2017-05-09] MEDS: Famotidine Inj 20 MG in IV Premix 1 EACH IV SCH ×2 (08:39→19:39)
[2017-05-09] MEDS: Heparin 5,000 Unit/mL Inj SUBQ SCH ×3 (08:45→16:59)
[2017-05-09] MEDS: Fluticasone 100 mCg Inhaler INHALATION SCH ×2 (10:31→19:39)
[2017-05-09] MEDS: Hydrocortisone 10 mg Tablet PO SCH ×3 (10:43→19:38)
--- NOTE | 2017-05-09 10:51 | NUR ---
Social Work: Readiness for Discharge/Multidisciplinary Rounds D: EMR reviewed. Pt is on day 2 of hospitalization. Pt discussed in multidisciplinary rounds. Per multidisciplinary rounds, pt is medically stable for discharge home today. Per MD, pt's dilauted to be discontinued today prior to discharge. Per RN, pt may possibly appeal discharge. SW notified UR RN. No MD orders received. No SW discharge needs identified. SW will continue to follow. A: Pt is independent at baseline with capacity for self-care. Pt states she has close friends who are helping with her kids while she is admitted. Pt plans to discharge home with no anticipated needs. SW provided support and will follow if needs arise. P: Pt anticipate to transport home with friend via POV - No SW discharge needs identified. No MD orders received. SW updated UR that pt may appeal discharge. SW will continue to follow. DELIA Silva
[2017-05-09] MEDS: Ascorbic Acid 500 mg Tablet PO SCH (13:53)
[2017-05-09] MEDS: HYDROcodone-APAP 5-325 mg Tablet PO PRN ×2 (13:57→20:04)
--- NOTE | 2017-05-09 14:05 | PCM.PNMED ---
Subjective Date of Service May 09, 2017 Subjective Complains of ongoing abdominal pain and nausea. Denies any other new issues/ complaints. She is wondering if she should be continued on IV Steroids Exam Vital Signs Vital Sign - Last Date Time Temp Pulse Resp B/P Pulse Ox O2 Delivery O2 Flow Rate FiO2 05/09/17 07:49 36.7 63 18 104/64 97 Room Air Intake and Output 05/08/17 05/08/17 05/09/17 Cumulative From/Thru 15:00 23:00 07:00 05/07/17 17:07 - 05/09/17 06:20 Intake Total 1774 ml 2983 ml 8622 ml Output Total 700 ml 1100 ml 2525 ml Balance 1074 ml 1883 ml 6097 ml Intake Oral 687 ml 1511 ml 3270 ml IV Total 1087 ml 1472 ml 5352 ml Output Urine Total 700 ml 1100 ml 2525 ml # Voids 2 # Bowel Movements 0 0 Exam General: Alert, Cooperative, No Acute Distress Head: Normal Eyes: Scleral Anicteric Nose: Mucous Membr Moist/[place] Mouth: Mucous Membr Moist/[place] Neck: Supple Chest & Lungs: Chest Wall Normal, Clear to auscultation bilat Cardiovascular: Regular Rate/Rhythm Pulses: NL DP, PT Abdomen: Tender, Non-distended, Normoactive bowel tones, Soft Extremities: No cyanosis/clubbing/edema bilat Neurological: Grossly Neurologically Intact, Normal Speech IVs and Medications Medications Reviewed: Medications were reviewed in detail Lab and Diagnostics Result Diagram: 05/08/17 1013 05/08/17 0436 X-Rays, CTs and MRIs Chest x-ray performed 05/07/2017 IMPRESSION: No acute cardiopulmonary disease process. Dictated by: Agnieszka Marmolejo MD, PhD on 05/07/2017 at 20:[address] without contrast performed 05/07/2017 IMPRESSION: No acute intracranial disease process. 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 # Acute on chronic abdominal pain with associated nausea/vomiting, present on admission. Ongoing - Reviewed records from her recent PCP visit at [facility]. - ? If presenting symptoms due to irritable bowel syndrome vs acute viral gastroenteritis vs other - CT Abd/Pelvis unremarkable - Continue with supportive care including IV Dilaudid prn # Acute on chronic adrenal insufficiency, present on admission, active - Blood pressure stable, no hyperpigmentation. - Received 100 mg IV hydrocortisone succinate in the emergency department, IV fluids - Hydrocortisone succinate IV 100 mg every 6 hours continued on admission but changed to home PO meds - Endocrinology consulted on 05/09/17. Will followup with recs # Suspected acute viral illness on admission. - No obvious source of infection - Continue with supportive care including promethazine and ondansetron as needed for nausea # Acute on chronic migraine, present on admission, active - Patient takes topiramate for treatment and prophylaxis, will continue. - Acetaminophen, IV fluids. # Chronic asthma, present on admission, Stable - Continue Pulmicort as needed - Continue albuterol inhaler as needed - Continue albuterol nebulizer as needed # Chronic anxiety and PTSD, POA, Stable - Continue sertraline, prazosin, trazodone # Chronic obesity, present on admission, active - BMI 35.8 - Dietitian consult ordered. Dispo: 1-2 days pending improved GI symptoms GI Prophylaxis: H2 nathalie VTE Prophylaxis: Sub-Q Heparin (Unfractionated) VTE Mechanical Devices: Intermittant Pneumatic CD Resuscitation Status: CPR: Attempt Resuscitation Colt Connell May 09, 2017 14:05
[2017-05-09 15:17] VITALS: BP 118/74; PULSE 66; RESP 18; O2SAT 94
[2017-05-09 15:25] VITALS: BP 119/74
[2017-05-09 15:41] VITALS: BP 134/79
--- NOTE | 2017-05-09 15:47 | PCM.CHPMED ---
Subjective Date of Service: May 09, 2017 Primary Physician: Admitting Physician: Jose Hathaway MD Primary Care Physician: Santiago Attending Physician: Colt Connell Chief Complaint: Chief Complaint: Initial Endocrinology Consultation: Asked by to consult regarding management of adrenal insufficiency. History of Present Illness: The patient is a 32-year-old woman with a history of adrenal insufficiency since 2010. She was diagnosed and has been managed by Dr. Livingston at [facility]. Details of original diagnosis are unclear. She was told by doctors at that time that she did not fit any of the usual categories. Over the past 7 years she has had hospital treatment requiring stress dose steroids are approximately 7 occasions. Some of these have been postoperative and others have been spontaneous. She has been managed on relatively high doses of hydrocortisone and has managed to taper to 40 mg a day, taken as 20 every morning, 10 at noon, 10 at 5-6 PM daily. Her usual stress dose coverage is to double to 80 mg daily for several days in the event of minor illness. 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 Approximate 6 days prior to admission she began to experience nausea, diffuse abdominal pain and anorexia. She fell on the stairs and experienced hip pain and was evaluated in urgent care. Upon referral to the ED she received steroids briefly but then was discharged home. She has been unable to hold down medications for approximately 4 days prior to admission, and felt herself becoming dehydrated. Postural lightheadedness but no syncope. No significant diarrhea. She was evaluated in urgent care approximately 4 days prior to admission and told to take stress dose steroids at home, but was unable due to nausea. She returned home and contacted her recreation counselor who referred her to urgent care. At the second visit to urgent care she was referred for hospitalization. The time of admission she was treated with 100 mg hydrocortisone every 6 hours. Since admission her vomiting has improved and she is now able to take pills but limited oral food and fluid intake. Review of Systems: 11 systems reviewed. Significant findings as noted above. Additional findings include mild increase in asthma dyspnea. Continuous headache. She acknowledges increased stress with insomnia which she recognizes may have contributed to her health problems over the past 3 weeks. Menstrual cycle is intact albeit slightly irregular. No hypothyroidism. 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 No adrenal insufficiency, premature menopause, vitiligo, pernicious anemia, or other autoimmune disease. Social History Occupation: director at [employer] Alcohol Use: Nox Substance Use: Yes ( marijuana 10 years ago) Smoking Status: Never Smoker Additional Information Single mother and daughter 14-year-old, some 4-year-old. Recently relocated to this area. Exam Vital Signs Vital Sign - Last Date Time Temp Pulse Resp B/P Pulse Ox O2 Delivery O2 Flow Rate FiO2 05/09/17 15:25 119/74 05/09/17 15:17 36.6 66 18 94 Room Air Intake and Output 05/08/17 05/08/17 05/09/17 Cumulative From/Thru 15:00 23:00 07:00 05/07/17 17:07 - 05/09/17 06:20 Intake Total 1774 ml 2983 ml 8622 ml Output Total 700 ml 1100 ml 2525 ml Balance 1074 ml 1883 ml 6097 ml Intake Oral 687 ml 1511 ml 3270 ml IV Total 1087 ml 1472 ml 5352 ml Output Urine Total 700 ml 1100 ml 2525 ml # Voids 2 # Bowel Movements 0 0 Blood pressure lying 118/74, 66, sitting 119/74 General: Obese woman slightly dysphoric but no acute distress HEENT: sclerae anicteric, oral mucosa moist, no increase mucosal pigmentation Neck: Supple, no adenopathy, no JVD, no goiter Chest: clear to auscultation, no wheezing Cardiac: S1S2, regular, no murmur Abdomen: BS normal, diffuse mild tenderness bilateral lower quadrants and left mid quadrant Extremities: No pitting edema Neuro: A&O, cranial nerves symmetric, motor strength 5/5, coordination normal Lab and Diagnostics Labs No eosinophilia Result Diagram: 05/08/17 1013 05/08/17 0436 X-Rays, CTs and MRIs PROCEDURE: CT ABDOMEN AND PELVIS WITH CONTRAST ([id number]) IMPRESSION: Normal appendix found, no sign of biliary distention, no urinary tract abnormality seen. Source of current symptoms is not found. Dictated by: Fer Teixeira M.D. on 05/08/2017 at 19:44 . Assessment & Plan Assessment This 32-year-old woman has long-standing diagnosis of adrenal insufficiency on replacement hydrocortisone and fludrocortisone. The details and accuracy of her initial diagnosis are not clear. Her current hospitalization seems to have been precipitated by 3 weeks of vague constitutional symptoms. At the outset she was able to take her usual high dose daily hydrocortisone; hence, initial cause of this was not addisonian crisis. For partially 5 days prior to admission however she has been unable to maintain her usual maintenance glucocorticoid regimen. Some of her increased abdominal complaints may be due to glucocorticoid deficiency in recent days, even if this was not the underlying cause. She gives a history of requiring high doses of glucocorticoid replacement and slightly prolonged stress dose coverage at times of illness. With regard to the cause of her multiple symptoms over the past 3 weeks, it seems that infections or other acute medical illnesses been excluded. Her history of increased stress with significant sleep disorder is notable. She seems open to the idea that stress may have precipitated the current episode. She appears to have functional GI disorders that are long-standing, likely worsened with recent sleep disorder and stress. With regard to her current adrenal sufficiency management, the main issues are: 1) recovery from vomiting and inability to take by mouth medications, 2) adequate hydration with no vomiting or diarrhea, and 3) no orthostatic hypotension. If these 3 criteria met that I believe she is safe to discharge home on her usual stress dose 80 mg per day hydrocortisone plus her usual Florinef to continue for 2-3 more days with further recovery. She seems amenable to taking these medications orally as she is no longer vomiting or pills. I took the liberty of adding aldosterone, renin activity and DHEAS to her morning labs. These will not return in time. Although her aldosterone may be suppressed by her current Florinef, if aldosterone and DHEAS are normal it would suggest preserved adrenal function. Recommendations: # Oral hydrocortisone 80 mg per day (40, 40 or 40, 20, 20) # Continue Florinef 0.1 mg per day # Check orthostatic blood pressure # Okay to discharge from endocrine perspective when able to take by mouth and maintain hydration # She is moved to this area and will benefit from referral to [facility] Endocrinology clinic at time of discharge. Problems: Pain Evaluation: Pain not Controlled GI Prophylaxis: H2 nathalie VTE Prophylaxis: Sub-Q Heparin (Unfractionated) VTE Mechanical Devices: Intermittant Pneumatic CD Resuscitation Status: CPR: Attempt Resuscitation Time spent 60 minutes Filemon Pena MD May 09, 2017 15:47
--- NOTE | 2017-05-09 19:12 | NUR ---
Late Medications/Emesis Per pt request, d/t nausea and multiple pills at AM, doses divided up to make it easier for pt to tolerate. Pt did receive full 40mg PO steroid as well as her additional 40mg PO at 1700. Emesis: Pt attempting solid foods, stated with dinner, that she tolerated chicken noodle soup and waited 30mins before starting mashed potatoes. Stated 10mins after mashed potatoes, up to BR and had it 'coming out both ends.' Pt exhausted. Still nauseous - 8mg IVP Zofran given. Pt resting at this time. Care continues.
[2017-05-09 21:00] VITALS: BP 133/84; PULSE 52; RESP 14; O2SAT 99
[2017-05-10] MEDS: Heparin 5,000 Unit/mL Inj SUBQ SCH ×3 (00:09→16:13)
[2017-05-10] MEDS: HYDROcodone-APAP 5-325 mg Tablet PO PRN ×5 (00:15→20:42)
[2017-05-10] MEDS: Promethazine Inj 12.5 MG in 0.9% Sodium Chloride 50 ML IV PRN ×5 (02:02→20:02)
[2017-05-10] MEDS: Ondansetron 2 mg/mL 2 mL Inj IVPUSH PRN ×5 (03:59→22:23)
[2017-05-10] MEDS: 0.9% Sodium Chloride 1,000 ML IV SCH ×3 (04:03→13:59)
[2017-05-10] MEDS: HYDROmorphone 0.5 mg/0.5 mL iSecure Syringe IVPUSH PRN ×3 (04:37→17:58)
[2017-05-10 05:00] VITALS: BP 118/50; PULSE 56; RESP 16; O2SAT 98
[2017-05-10 06:10] LABS: DHEA-Sulfate 27.5 ug/dL (84.8-378.0)
--- NOTE | 2017-05-10 06:23 | NUR ---
GI C/o constant nausea and abdominal pain rated 7-8 overnight. Alternated doses of IV dilaudid and PO Vicodin as well as Zofran and Phenergan. Able to intermittently eat applesauce and crackers until this morning when she had a small emesis of 30ML. Sleeping poorly due to nausea / pain and frequent medications overnight.
[2017-05-10] MEDS: Hydrocortisone 10 mg Tablet PO SCH ×3 (08:21→16:13)
[2017-05-10] MEDS: Fluticasone 100 mCg Inhaler INHALATION SCH ×2 (08:21→20:44)
[2017-05-10] MEDS: Famotidine Inj 20 MG in IV Premix 1 EACH IV SCH ×2 (08:22→20:44)
[2017-05-10 10:10] VITALS: BP 127/83; PULSE 61
[2017-05-10 10:11] VITALS: BP 145/94; PULSE 60
[2017-05-10 11:09] VITALS: BP 131/85; PULSE 61; RESP 17; O2SAT 94
[2017-05-10] MEDS: Ascorbic Acid 500 mg Tablet PO SCH (11:47)
--- NOTE | 2017-05-10 15:25 | NUR ---
N&V Pt continues to have constant nausea and feeling overrall, "poopy," appearing tired but unable to get good sleep. Attempting to keep pt on top of her antiemetics as they are available - giving doses of antiemetics prior to eating meals. Was able to keep breakfast down but did have severe nausea; post lunch, pt burping and then wretching resulting in ~50cc emesis (liquid). Pt stating feeling like there is something stuck in there and stating that maybe if she were to just be able to have full-on emesis that maybe she would feel better. Continued to wretch post emesis. Phenergan infusing. Nausea settled down. Care continues.
--- NOTE | 2017-05-10 16:02 | PCM.PNMED ---
Subjective Date of Service May 10, 2017 Subjective Complains of ongoing abdominal pain and nausea. Denies any other new issues/ complaints. Exam Vital Signs Vital Sign - Last Date Time Temp Pulse Resp B/P Pulse Ox O2 Delivery O2 Flow Rate FiO2 05/10/17 11:09 36.9 61 17 131/85 94 Room Air Intake and Output 05/09/17 05/09/17 05/10/17 Cumulative From/Thru 15:00 23:00 07:00 05/07/17 17:07 - 05/10/17 06:54 Intake Total 2820 ml 2608 ml 53609 ml Output Total 1600 ml 4230 ml 8355 ml Balance 1220 ml -1622 ml 5695 ml Intake Oral 1300 ml 1280 ml 5850 ml IV Total 1520 ml 1328 ml 8200 ml Output Urine Total 1600 ml 4200 ml 8325 ml Emesis 30 ml 30 ml # Voids 2 # Bowel Movements 1 1 Exam General: Alert, Cooperative, No Acute Distress Head: Normal Eyes: Scleral Anicteric Nose: Mucous Membr Moist/[place] Mouth: Mucous Membr Moist/[place] Neck: Supple Chest & Lungs: Chest Wall Normal, Clear to auscultation bilat Cardiovascular: Regular Rate/Rhythm Pulses: NL DP, PT Abdomen: Tender, Non-distended, Normoactive bowel tones, Soft Extremities: No cyanosis/clubbing/edema bilat Neurological: Grossly Neurologically Intact, Normal Speech IVs and Medications Medications Reviewed: Medications were reviewed in detail Lab and Diagnostics Result Diagram: 05/08/17 1013 05/08/17 0436 X-Rays, CTs and MRIs Chest x-ray performed 05/07/2017 IMPRESSION: No acute cardiopulmonary disease process. Dictated by: Agnieszka Marmolejo MD, PhD on 05/07/2017 at 20:[address] without contrast performed 05/07/2017 IMPRESSION: No acute intracranial disease process. 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 # Acute on chronic abdominal pain with associated nausea/vomiting, present on admission. Ongoing - ? If presenting symptoms due to irritable bowel syndrome vs acute viral gastroenteritis vs other - CT Abd/Pelvis unremarkable - Continue with supportive care including IV Dilaudid prn - Will consider GI consult in AM if symptoms do not improve # Acute on chronic adrenal insufficiency, present on admission, active - Blood pressure stable, no hyperpigmentation. - Received 100 mg IV hydrocortisone succinate in the emergency department, IV fluids - Hydrocortisone succinate IV 100 mg every 6 hours continued on admission but changed to home PO meds - Endocrinology consulted on 05/09/17. Appreciate Dr. Pena's recommendations. Will followup with recs - Oral hydrocortisone 80 mg per day (40, 40 or 40, 20, 20) - Continue Florinef 0.1 mg per day - Check orthostatic blood pressure # Suspected acute viral illness on admission. - No obvious source of infection - Continue with supportive care including promethazine and ondansetron as needed for nausea # Acute on chronic migraine, present on admission, active - Patient takes topiramate for treatment and prophylaxis, will continue. - Acetaminophen, IV fluids. # Chronic asthma, present on admission, Stable - Continue Pulmicort as needed - Continue albuterol inhaler as needed - Continue albuterol nebulizer as needed # Chronic anxiety and PTSD, POA, Stable - Continue sertraline, prazosin, trazodone # Chronic obesity, present on admission, active - BMI 35.8 - Dietitian consult ordered. Dispo: 1-2 days pending improved GI symptoms GI Prophylaxis: H2 nathalie VTE Prophylaxis: Sub-Q Heparin (Unfractionated) VTE Mechanical Devices: Intermittant Pneumatic CD Resuscitation Status: CPR: Attempt Resuscitation Colt Connell May 10, 2017 16:01
[2017-05-10 21:00] VITALS: BP 133/84; PULSE 61; RESP 16; O2SAT 97
[2017-05-11] VITALS (11 sets, daily range): BP systolic 115–133; BP diastolic 68–89; PULSE 57–69; RESP 16; O2SAT 96–97
[2017-05-11] MEDS: HYDROmorphone 0.5 mg/0.5 mL iSecure Syringe IVPUSH PRN ×4 (00:17→21:47)
[2017-05-11] MEDS: Heparin 5,000 Unit/mL Inj SUBQ SCH ×3 (00:17→16:44)
[2017-05-11] MEDS: Promethazine Inj 12.5 MG in 0.9% Sodium Chloride 50 ML IV PRN ×5 (01:15→22:01)
[2017-05-11] MEDS: 0.9% Sodium Chloride 1,000 ML IV SCH ×2 (01:19→06:35)
[2017-05-11] MEDS: HYDROcodone-APAP 5-325 mg Tablet PO PRN ×5 (02:40→23:17)
[2017-05-11] MEDS: Ondansetron 2 mg/mL 2 mL Inj IVPUSH PRN ×4 (04:10→18:25)
[2017-05-11 05:45] LABS: INR 1.01 ratio
[2017-05-11 05:56] LABS: Magnesium 1.9 mg/dL (1.6-2.6)
--- NOTE | 2017-05-11 06:22 | NUR ---
GI Failed IV site with evening delay of restart. Patient with nausea and small clear emesis. New IV obtained and Phenergan given. Continued with alternate doses of Zofran then Phenergan at Q 2hr intervals. no further emesis overnight and patient taking in liq's without problems.
[2017-05-11] MEDS ORDERED: KCl 40 mEq/D5W 500 mL 40 MEQ in IV Premix 500 EACH IV ONE (07:45)
[2017-05-11] MEDS ORDERED: Potassium Chloride 20 mEq SR Tablet PO ONE (07:45)
[2017-05-11] MEDS: Dextrose 5% 0.9% NaCl 1,000 ML IV SCH ×2 (08:14→19:31)
[2017-05-11] MEDS: Famotidine Inj 20 MG in IV Premix 1 EACH IV SCH ×2 (08:14→20:38)
[2017-05-11] MEDS: Hydrocortisone 10 mg Tablet PO SCH ×3 (08:32→16:42)
[2017-05-11] MEDS: Fluticasone 100 mCg Inhaler INHALATION SCH ×2 (08:33→20:37)
--- NOTE | 2017-05-11 11:01 | NUR ---
K+ rider Pt with K+ rider infusing at 100ml/hr - decreased from initial order of 125ml/hr d/t pt poor vein access (hard start); running concurrently with primary fluids. Pt aware of s/sx to watch for. Telemetry in place - NSR per tech. Within minutes, pt stating pain to IV site at left FA. Decreased to 80ml/hr, still c/o burning, decreased to 60ml/hr - still stating pain, decreased to 30ml/hr with D5NS at 60ml/hr for further dilution. aware of probable need for PICC line. Per pt, has had 3 or 4 over the last 4 yrs. Pt continues to state pain (tender to begin with prior to K+ rider from previous infiltrated IV site), "still hurts" but "it's okay". Care continues. Addendum: 05/11/17 at 1456 by EZ JOSE RN Pt no longer able to tolerate infusion. Infusion stopped at 1450. IV therapy called and given heads up re: IV. Stated they would come 'take a look.' flange machine operator made made aware, does not want to have PICC inserted at this time. Await IV therapy for new PIV. Addendum: 05/11/17 at 1621 by EZ JOSE RN New IV placed by IV therapy. K+ rider infusing again at 30ml/hr concurrently with D5NS at 60ml/hr (both at decreased rates d/t poor pt veins). Care continues. Addendum: 05/11/17 at 1937 by EZ JOSE RN having to stop infusion Q4h for phenergan dosing as per Micromed[employer] is "caution: variable" compatibility - resume K+ rider once antiemetic completed.
[2017-05-11] MEDS ORDERED: 0.9% Sodium Chloride 100 ML ONE (11:53)
[2017-05-11] MEDS: Ascorbic Acid 500 mg Tablet PO SCH (12:00)
--- NOTE | 2017-05-11 14:32 | PCM.PNMED ---
Subjective Date of Service May 11, 2017 Subjective Reports ongoing abdominal pain and nausea. But says able to tolerate more PO intake this morning. Denies any other new issues/complaints. Exam Vital Signs Vital Sign - Last Date Time Temp Pulse Resp B/P Pulse Ox O2 Delivery O2 Flow Rate FiO2 05/11/17 13:27 121/68 05/11/17 13:25 36.7 68 97 Room Air 05/11/17 06:00 16 Intake and Output 05/10/17 05/10/17 05/11/17 Cumulative From/Thru 15:00 23:00 07:00 05/07/17 17:07 - 05/11/17 06:42 Intake Total 2532 ml 48427 ml 45624 ml Output Total 3200 ml 3250 ml 31246 ml Balance -668 ml 16216 ml 18455 ml Intake Oral 1229 ml 86868 ml 45636 ml IV Total 1303 ml 1170 ml 78425 ml Output Urine Total 3150 ml 3250 ml 72604 ml Emesis 50 ml 80 ml # Voids 2 # Bowel Movements 0 0 1 Exam General: Alert, Cooperative, No Acute Distress Head: Normal Eyes: Scleral Anicteric Nose: Mucous Membr Moist/[place] Mouth: Mucous Membr Moist/[place] Neck: Supple Chest & Lungs: Chest Wall Normal, Clear to auscultation bilat Cardiovascular: Regular Rate/Rhythm Pulses: NL DP, PT Abdomen: Tender, Non-distended, Normoactive bowel tones, Soft Extremities: No cyanosis/clubbing/edema bilat Neurological: Grossly Neurologically Intact, Normal Speech IVs and Medications Medications Reviewed: Medications were reviewed in detail Lab and Diagnostics Result Diagram: 05/08/17 1013 05/11/17 0500 X-Rays, CTs and MRIs Chest x-ray performed 05/07/2017 IMPRESSION: No acute cardiopulmonary disease process. Dictated by: Agnieszka Marmolejo MD, PhD on 05/07/2017 at 20:[address] without contrast performed 05/07/2017 IMPRESSION: No acute intracranial disease process. 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 # Acute on chronic abdominal pain with associated nausea/vomiting, present on admission. Ongoing - ? If presenting symptoms due to irritable bowel syndrome vs acute viral gastroenteritis vs other - CT Abd/Pelvis unremarkable - Continue with supportive care including IV Dilaudid prn - Will consider GI consult in AM if symptoms do not improve # Acute on chronic adrenal insufficiency, present on admission, active - Blood pressure stable, no hyperpigmentation. - Received 100 mg IV hydrocortisone succinate in the emergency department, IV fluids - Hydrocortisone succinate IV 100 mg every 6 hours continued on admission but changed to home PO meds - Endocrinology consulted on 05/09/17. Appreciate Dr. Pena's recommendations. Will followup with recs - Oral hydrocortisone 40, 20, 20 - Continue Florinef 0.1 mg per day # Acute hypokalemia. not present on admission - Replete and followup # Acute kidney injury. Present on admission - Initially improved but Cr elevated again - IVF and followup # Suspected acute viral illness on admission. - No obvious source of infection - Continue with supportive care including promethazine and ondansetron as needed for nausea # Acute on chronic migraine, present on admission, active - Patient takes topiramate for treatment and prophylaxis, will continue. - Acetaminophen, IV fluids. # Chronic asthma, present on admission, Stable - Continue Pulmicort as needed - Continue albuterol inhaler as needed - Continue albuterol nebulizer as needed # Chronic anxiety and PTSD, POA, Stable - Continue sertraline, prazosin, trazodone # Chronic obesity, present on admission, active - BMI 35.8 - Dietitian consult ordered. Dispo: 1-2 days pending improved GI symptoms GI Prophylaxis: H2 nathalie VTE Prophylaxis: Sub-Q Heparin (Unfractionated) VTE Mechanical Devices: Intermittant Pneumatic CD Resuscitation Status: CPR: Attempt Resuscitation Colt Connell May 11, 2017 14:32
[2017-05-12] MEDS: HYDROmorphone 0.5 mg/0.5 mL iSecure Syringe IVPUSH PRN ×5 (00:39→20:12)
[2017-05-12] MEDS: Heparin 5,000 Unit/mL Inj SUBQ SCH ×3 (00:39→16:52)
[2017-05-12 00:40] VITALS: BP 130/82; PULSE 62; RESP 16; O2SAT 96
[2017-05-12] MEDS: Promethazine Inj 12.5 MG in 0.9% Sodium Chloride 50 ML IV PRN ×5 (02:08→22:59)
--- NOTE | 2017-05-12 02:22 | NUR ---
Pain /Nausea/Rash On initial assessment, patient stated pain 9/10 on pain scale. Alternating Vicodin and dilaudid ivp. Patient also stated nausea is constant. Phenergan and Ondansetron administered at alternating times. Patient concerned about red, itchy rash on bilateral AC sites. Patient requested hydrocortisone cream to stop the itching. Dr. Hathaway paged and cream was ordered and administered. Patient also requested Dilaudid to be given q [address] instead of [address] Hathaway also ok'd the Dilaudid change. Patient upset about previous day shift physician. Will relay information to day shift. Call light within reach. Care continues.
[2017-05-12] MEDS: Dextrose 5% 0.9% NaCl 1,000 ML IV SCH (02:44)
[2017-05-12] MEDS: HYDROcodone-APAP 5-325 mg Tablet PO PRN ×4 (03:27→22:47)
[2017-05-12 06:20] VITALS: BP 114/72; PULSE 62; RESP 16; O2SAT 98
[2017-05-12] MEDS: Ondansetron 2 mg/mL 2 mL Inj IVPUSH PRN ×2 (06:40→20:12)
[2017-05-12] MEDS: Ascorbic Acid 500 mg Tablet PO SCH (08:08)
[2017-05-12] MEDS: Fluticasone 100 mCg Inhaler INHALATION SCH ×2 (08:09→20:13)
[2017-05-12] MEDS: Hydrocortisone 10 mg Tablet PO SCH ×3 (08:09→16:52)
[2017-05-12 08:57] VITALS: PULSE 58
[2017-05-12] MEDS: Famotidine Inj 20 MG in IV Premix 1 EACH IV SCH ×2 (09:14→20:13)
[2017-05-12] MEDS ORDERED: Potassium Chloride 20 mEq SR Tablet PO ONE (11:25)
[2017-05-12] MEDS: D5 0.9% NaCl + KCl 20 mEq/L 1,000 ML IV SCH (12:07)
[2017-05-12 12:30] VITALS: BP 114/75; PULSE 69; RESP 16; O2SAT 96
--- NOTE | 2017-05-12 14:36 | NUR ---
MVA REACTOR OPERATOR witnessed [facility]'s signature GARRETT BeattySW
--- NOTE | 2017-05-12 15:21 | PCM.PNMED ---
Subjective Date of Service May 12, 2017 Subjective Reports ongoing abdominal pain and nausea. But says able to tolerate more PO intake today. Denies any other new issues/complaints. Exam Vital Signs Vital Sign - Last Date Time Temp Pulse Resp B/P Pulse Ox O2 Delivery O2 Flow Rate FiO2 05/12/17 12:30 36.9 69 16 114/75 96 Room Air Intake and Output 05/11/17 05/11/17 05/12/17 Cumulative From/Thru 15:00 23:00 07:00 05/07/17 17:07 - 05/12/17 06:45 Intake Total 75 ml 2724 ml 2554 ml 16955 ml Output Total 3300 ml 2500 ml 91809 ml Balance 75 ml -576 ml 54 ml 4320 ml Intake Oral 1661 ml 1520 ml 33207 ml IV Total 75 ml 1063 ml 1034 ml 09992 ml Output Urine Total 3300 ml 2500 ml 86708 ml Emesis 80 ml # Voids 2 # Bowel Movements 0 1 Exam General: Alert, Cooperative, No Acute Distress Head: Normal Eyes: Scleral Anicteric Nose: Mucous Membr Moist/[place] Mouth: Mucous Membr Moist/[place] Neck: Supple Chest & Lungs: Chest Wall Normal, Clear to auscultation bilat Cardiovascular: Regular Rate/Rhythm Pulses: NL DP, PT Abdomen: Tender, Non-distended, Normoactive bowel tones, Soft Extremities: No cyanosis/clubbing/edema bilat Neurological: Grossly Neurologically Intact, Normal Speech IVs and Medications Medications Reviewed: Medications were reviewed in detail Lab and Diagnostics Result Diagram: 05/08/17 1013 05/12/17 0930 X-Rays, CTs and MRIs Chest x-ray performed 05/07/2017 IMPRESSION: No acute cardiopulmonary disease process. Dictated by: Agnieszka Marmolejo MD, PhD on 05/07/2017 at 20:[address] without contrast performed 05/07/2017 IMPRESSION: No acute intracranial disease process. 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 # Acute on chronic abdominal pain with associated nausea/vomiting, present on admission. Ongoing - ? If presenting symptoms due to irritable bowel syndrome vs other. Acute viral gastroenteritis seems less likely - CT Abd/Pelvis unremarkable - Continue with supportive care including IV Dilaudid prn - GI consulted on 05/12. Will followup with recs # Acute on chronic adrenal insufficiency, present on admission, active - Blood pressure stable, no hyperpigmentation. - Received 100 mg IV hydrocortisone succinate in the emergency department, IV fluids - Hydrocortisone succinate IV 100 mg every 6 hours continued on admission but changed to home PO meds - Endocrinology consulted on 05/09/17. Appreciate Dr. Pena's recommendations. Will followup with recs - Oral hydrocortisone increased to 40, 20, 20 daily for now - Continue Florinef 0.1 mg per day # Acute hypokalemia. not present on admission. Ongoing. - Replete and followup # Acute kidney injury. Present on admission - Initially improved but Cr elevated again and now improving with IVF - IVF and followup # Suspected acute viral illness on admission. - No obvious source of infection - Continue with supportive care including promethazine and ondansetron as needed for nausea # Acute on chronic migraine, present on admission, active - Patient takes topiramate for treatment and prophylaxis, will continue. - Acetaminophen prn # Chronic asthma, present on admission, Stable - Continue Pulmicort as needed - Continue albuterol inhaler as needed - Continue albuterol nebulizer as needed # Chronic anxiety and PTSD, POA, Stable - Continue sertraline, prazosin, trazodone # Chronic obesity, present on admission, active - BMI 35.8 - Dietitian consult ordered. Dispo: 1-2 days pending improved GI symptoms GI Prophylaxis: H2 nathalie VTE Prophylaxis: Sub-Q Heparin (Unfractionated) VTE Mechanical Devices: Intermittant Pneumatic CD Resuscitation Status: CPR: Attempt Resuscitation Colt Connell May 12, 2017 15:20
--- NOTE | 2017-05-12 18:13 | NUR ---
Pain/Nausea Pt. reports ongoing pain and nausea. No reports of vomiting. Pt. tolerated general diet. Pt. NPO after midnight for upper endoscopy tomorrow. Care continues.
[2017-05-12 20:00] VITALS: PULSE 70
[2017-05-12 21:15] VITALS: BP 119/77; PULSE 66; RESP 16; O2SAT 96
[2017-05-13] VITALS (8 sets, daily range): BP systolic 110–135; BP diastolic 72–85; PULSE 58–107; RESP 16–20; O2SAT 95–97
--- NOTE | 2017-05-13 00:05 | CONS ---
[address] [address] CONSULTATION REPORT PATIENT: BLAIR LAGOS : 1985 MR#: [id number] ADMIT: 05/07/2017 JOB ID: [id number] DATE OF SERVICE: 05/12/2017 I had the pleasure of seeing this patient at [facility] for evaluation for nausea and vomiting. HISTORY OF PRESENT ILLNESS: This is a 32-year-old lady with history of adrenal insufficiency and addisonian crisis who came into the emergency department on May 07, 2017. Also, when this happens, she gets nausea, vomiting and abdominal pain. Before the diagnosis of adrenal insufficiency, she had workup done for abdominal pain including EGD, colonoscopy. Last EGD was done two years ago to see why she is having the abdominal pain and no cause was noted. This was all done at [facility]. She came to the emergency department with falls, weakness. She was seen in the emergency department a week before she was seen again and received stress dose steroids as well as IV fluids. Then, she went home, was not able to keep herself well, and she got worsening fatigue and weakness. Then, she started having abdominal pain with nausea, vomiting, coughing. She was not able to keep any water or food down, and so she came to the emergency department again and this time she got admitted. In the emergency department, she was diagnosed with acute on chronic renal insufficiency. She was given IV steroids. There was a concern that she could have acute viral illness as well. She had asthma and she was given Pulmicort, anxiety and she was given trazodone. In the hospital, she was seen by the security developer, and they recommended continuing hydrocodone, Florinef, and they attributed the abdominal pain, nausea and vomiting to the adrenal insufficiency and typically worsens during adrenal insufficiency crisis. Over the past few days, her nausea has gotten a little better and she was able to eat for the first time today without throwing up, though orthostatic hypotension was noted eventually, and she continues to have the stress dose steroids. Currently, she is still having nausea but no vomiting today, and was able to keep her foods down. No diarrhea. No constipation noted. No fever, chills, headaches, blurred vision. She does have some dizziness and lightheadedness. No chest pain, shortness of breath. She does also indicate that she has some epigastric discomfort which is pretty much what she had in the past. She is not having any lower abdominal pain. PAST MEDICAL HISTORY: Adrenal insufficiency, asthma, melanoma, PTSD, anxiety. SURGICAL HISTORY: Past surgical history: None. FAMILY HISTORY: Hypothyroidism. SOCIAL HISTORY: Director at [employer]. No alcohol use. No substance abuse, but she did use marijuana 10 years ago. Never smoked. MEDICATIONS: Include albuterol, epinephrine, iron, Prazosin, Tylenol with codeine, ibuprofen, sertraline, topiramate, trazodone, Pulmicort, Zofran, hydrocortisone, vitamin C, B12, vitamin D2. PHYSICAL EXAMINATION: Patient alert, oriented, does appear comfortable. Temp 36.7, pulse 69, respirations 16, blood pressure 114/75. Head and neck: No icterus. Lungs: Clear. Cardiovascular: Regular rate and rhythm. Normal S1, S2. Abdomen is soft, nontender, nondistended with normoactive bowel sounds. Extremities: No pitting edema of the ankles. Skin shows no jaundice. Radial pulses bilaterally strong and intact. LABORATORY: CBC: Hemoglobin 7400, hemoglobin 11.9, platelets of 195,000. Coags 1.01 INR. Chemistry showing normal LFTs, BUN 8, creatinine 1.09. IMAGING: CT of the abdomen showed nothing that would explain her abdominal pain. IMPRESSION: A 32-year-old lady with history of chronic abdominal pain, nausea, vomiting, who tends to have cyclic abdominal pain, vomiting with adrenal insufficiency. It is slowly getting better. Typically, she says her pattern includes adrenal insufficiency, nausea, vomiting followed by upper abdominal pain, then when nausea and vomiting improves, her stomach pain tends to get worse. Workup was done including esophagogastroduodenoscopy and colonoscopy in [facility] which did not reveal anything. She was at one point told she has irritable bowel syndrome, but that was before the diagnosis of adrenal insufficiency. It is typically following the pattern that she had in the past. She, for the first time today, tolerated p.o. intake with no vomiting. She still has the nausea. RECOMMENDATION: Would like to proceed with EGD and would like to do a gastric emptying study of solids as well as do a HIDA scan with CCK to see if there is any kind of gallbladder issue. MTDD
[2017-05-13] MEDS: HYDROmorphone 0.5 mg/0.5 mL iSecure Syringe IVPUSH PRN ×5 (01:06→23:49)
[2017-05-13] MEDS: Heparin 5,000 Unit/mL Inj SUBQ SCH ×4 (02:14→23:50)
[2017-05-13] MEDS: HYDROcodone-APAP 5-325 mg Tablet PO PRN ×2 (03:58→21:52)
--- NOTE | 2017-05-13 04:29 | NUR ---
Pain/nausea Pt continues with pain 7-8/10 and nausea. Rotating zofran and phenergan per orders for nausea and dilaudid and norco for pain. Pt pain not controlled, spoke with MD and changed dilaudid to 0.5mg q4hr PRN and norco 5/325mg 1-2 tabs q4hr PRN. Pt having decreased pain at this time. Pt has been NPO since midnight for procedures this AM. Care continues
[2017-05-13] MEDS: D5 0.9% NaCl + KCl 20 mEq/L 1,000 ML IV SCH (05:29)
[2017-05-13] MEDS ORDERED: Ondansetron 2 mg/mL 2 mL Inj ONE (07:45)
[2017-05-13] MEDS ORDERED: fentaNYL-PF 50 mCg/mL 2 mL Inj ONE (07:45)
[2017-05-13] MEDS ORDERED: Ketamine 10 mg/mL 20 mL Inj ONE (07:45)
[2017-05-13] MEDS: Famotidine Inj 20 MG in IV Premix 1 EACH IV SCH ×2 (07:59→19:49)
[2017-05-13] MEDS: Fluticasone 100 mCg Inhaler INHALATION SCH ×2 (08:30→19:49)
[2017-05-13] MEDS: Ascorbic Acid 500 mg Tablet PO SCH (08:30)
[2017-05-13] MEDS: Hydrocortisone 10 mg Tablet PO SCH ×3 (08:30→19:34)
--- NOTE | 2017-05-13 11:27 | PCM.PNMED ---
Subjective Date of Service May 13, 2017 Subjective Continues to have epigastric abdominal pain. Awaiting endoscopy,HIDA scan and gastric emptying test. Exam Vital Signs Vital Sign - Last Date Time Temp Pulse Resp B/P Pulse Ox O2 Delivery O2 Flow Rate FiO2 05/13/17 10:10 59 05/13/17 07:47 36.7 18 129/79 97 Room Air Intake and Output 05/12/17 05/12/17 05/13/17 Cumulative From/Thru 15:00 23:00 07:00 05/07/17 17:07 - 05/12/17 19:14 Intake Total 1357 ml 18807 ml Output Total 1000 ml 05204 ml Balance 357 ml 4677 ml Intake Oral 1357 ml 63622 ml IV Total 15973 ml Output Urine Total 1000 ml 48393 ml Emesis 80 ml # Voids 2 # Bowel Movements 0 1 Exam General: Alert, Cooperative, No Acute Distress Head: Normal Eyes: Scleral Anicteric Nose: Mucous Membr Moist/Spry Mouth: Mucous Membr Moist/Spry Neck: Supple Chest & Lungs: Chest Wall Normal, Clear to auscultation bilat Cardiovascular: Regular Rate/Rhythm Pulses: NL DP, PT Abdomen: Mild Tendererness at epigastric area, Non-distended, Normoactive bowel tones, Soft Extremities: No cyanosis/clubbing/edema bilat Neurological: Grossly Neurologically Intact, Normal Speech IVs and Medications Medications Reviewed: Medications were reviewed in detail Lab and Diagnostics Result Diagram: 05/08/17 1013 05/13/17 0452 X-Rays, CTs and MRIs Chest x-ray performed 05/07/2017 IMPRESSION: No acute cardiopulmonary disease process. Dictated by: Agnieszka Marmolejo MD, PhD on 05/07/2017 at 20:[address] without contrast performed 05/07/2017 IMPRESSION: No acute intracranial disease process. Dictated by: Agnieszka Marmolejo MD, PhD on 05/07/2017 at 21:48 PROCEDURE: CT ABDOMEN AND PELVIS WITH CONTRAST ([id number]) INDICATIONS: abd pain IMPRESSION: Normal appendix found, no sign of biliary distention, no urinary tract abnormality seen. Source of current symptoms is not found. Dictated by: Fer Teixeira M.D. 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 # Acute on chronic abdominal pain with associated nausea/vomiting, present on admission. Ongoing - due to irritable bowel syndrome vs gastroparesis versus adrenal insufficiency vs others. Acute viral gastroenteritis seems less likely - CT Abd/Pelvis unremarkable - Continue with supportive care including IV Dilaudid prn - GI consulted on 05/12. plan EGD for today . HIDA scan and gastric emptying test pending # Acute on chronic adrenal insufficiency, present on admission, active - Blood pressure stable, no hyperpigmentation. - Received 100 mg IV hydrocortisone succinate in the emergency department, IV fluids - Hydrocortisone succinate IV 100 mg every 6 hours continued on admission but changed to home PO meds - Endocrinology consulted on 05/09/17. Appreciate Dr. Pena's recommendations. Will followup with recs - Oral hydrocortisone increased to 40, 20, 20 daily for now - Continue Florinef 0.1 mg per day # Acute hypokalemia. not present on admission. Ongoing. - Repleted and followup # Acute kidney injury. Present on admission - Initially improved but Cr elevated again and now improving with IVF - IVF and followup # Suspected acute viral illness on admission. - No obvious source of infection - Continue with supportive care including promethazine and ondansetron as needed for nausea # Acute on chronic migraine, present on admission, active - Patient takes topiramate for treatment and prophylaxis, will continue. - Acetaminophen prn # Chronic asthma, present on admission, Stable - Continue Pulmicort as needed - Continue albuterol inhaler as needed - Continue albuterol nebulizer as needed # Chronic anxiety and PTSD, POA, Stable - Continue sertraline, prazosin, trazodone # Chronic obesity, present on admission, active - BMI 35.8 - Dietitian consult ordered. Dispo: 1-2 days pending improved GI symptoms and workup GI Prophylaxis: H2 nathalie VTE Prophylaxis: Sub-Q Heparin (Unfractionated) VTE Mechanical Devices: Intermittant Pneumatic CD Resuscitation Status: CPR: Attempt Resuscitation Igor Heart MD May 13, 2017 11:27
[2017-05-13] MEDS: Promethazine Inj 12.5 MG in 0.9% Sodium Chloride 50 ML IV PRN ×3 (11:36→23:49)
--- NOTE | 2017-05-13 13:13 | DRSVH ---
PROCEDURE: NM HIDA SCAN WITH CCK PHARMACEUTICAL: 5.6 mCi Tc-99m mebrofenin IV. INDICATIONS: ABD PAIN TECHNIQUE: Following intravenous administration of Tc-99m mebrofenin, sequential anterior abdominal images were obtained. To evaluate the contractile response of the gallbladder in response to fatty meal, 8 ounce s of Ensure Plus was consumed approximately 60 minutes after the administration of the radiopharmaceu tical. Sequential imaging was continued for 30 minutes after the start of CCK infusion. Gallbladder ejection fraction was calculated. COMPARISON: None. FINDINGS: Biliary scan: There is normal tracer uptake and excretion by the liver. There is normal visualizati on of the intrahepatic ducts, common bile duct, and gallbladder. There is normal tracer transit into the duodenum. CCK stimulation: There is normal contractile response to fatty meal. The calculated gallbladder eje ction fraction is 74%; normal values are above 35%. IMPRESSION: Normal examination without evidence of cholecystitis. Dictated by: Agnieszka Marmolejo MD, PhD on 05/13/2017 at 13:06 Approved by: Agnieszka Marmolejo MD, PhD on 05/13/2017 at 13:11
[2017-05-13] MEDS ORDERED: Hydrocortisone 50 mg/mL 2 mL Inj IVPUSH ONE (15:35)
[2017-05-13] MEDS: Dextrose 5% 0.9% NaCl 1,000 ML IV SCH (16:11)
--- NOTE | 2017-05-13 16:35 | NUR ---
NPO Morning Medication Per MD Heart; after pts upper endoscopy go ahead and administer the PO Florinef, Topamax, and any other medications due after 1200. eMR reflects this. Care continues
--- NOTE | 2017-05-13 17:20 | NUR ---
EGD Pt. left floor for EGD. Pt. saline locked.
[2017-05-13] MEDS: Lactated Ringer's 1,000 ML IV SCH ×2 (17:32→17:43)
--- NOTE | 2017-05-13 17:34 | PCM.HPANE ---
Patient Data Surgeon Admitting Provider:Jose Hathaway MD Attending Provider:Colt Connell Primary Care Physician:Santiago Other Provider: Reason for Visit Adrenal Insufficiency,Intractable Vomiting ADRENAL INSUFFICIENCY,INTRACTABLE VOMITING Ht/WT & BMI Height (Feet): 5 Height (Inches): 9.00 Weight (Kilograms): 111.900 Body Mass Index 35.92 Allergies Coded Allergies: Penicillins (Verified Allergy, Severe, hives, 05/07/17) egg (Verified Allergy, Severe, Anaphylaxis, 05/07/17) gabapentin (Verified Allergy, Severe, anaphylaxis, 05/07/17) iron dextran complex (Verified Allergy, Severe, anaphylaxis, 05/07/17) morphine (Verified Adverse Reaction, Severe, 05/07/17) Past Anesthesia History Anesthesia History: Positive for:: Anesthesia Reactions (Nausea/ Vomitting, Urinary Retention) Diabetes History Hx Diabetes?: No MRSA MRSA: No Medications Reported Medications Epinephrine (Epipen 2-Selvin)0.3 Mg/0.3 Ml Auto.injct0.3 Mg IJ DIRECTED PRN ALLERGY 05/07/17 Ascorbate Calcium (Vitamin C)500 Mg [id number] Mg PO DAILY 05/07/17 Ferrous Gluconate 324 Mg Bpm329 Mg PO DAILY Ref 0 05/07/17 Cyanocobalamin (Vitamin B-12) (Vitamin B-12)1,000 Mcg Tablet2,000 Mcg PO BID 05/07/17 Ergocalciferol (Vitamin D2) (Vitamin D2)2,000 Unit Kvtkxx93,000 Unit PO DAILY 05/07/17 Hydrocodone-Acetaminophen 5-325 mg 1 Each Tablet1 Tablet PO Q4H PRN For Pain Ref 0 05/07/17 Ibuprofen 200 Mg [id number] Mg PO BID PRN For Pain Ref 0 05/07/17 Albuterol Neb Soln 2.5 Mg/3 Ml Vial.neb2.5 Mg INHALATION Q4H PRN ASTHMA Ref 0 05/07/17 Albuterol HFA (Proair HFA)8.5 Gm Hfa.aer.ad2 Puffs INHALATION Q4H PRN ASTHMA #1 INHALER 05/07/17 Topiramate 25 Mg Vssbtt96 Mg PO HS Ref 0 05/07/17 Topiramate 25 Mg Phdwdy48 Mg PO DAILY #120 05/07/17 Budesonide (Pulmicort Flexhaler)60 Puff/Inh Inhaler2 Puffs PO BID #3 05/07/17 Trazodone 100 Mg [id number] Mg PO HS PRN INSOM #135 05/07/17 Sertraline HCl (Sertraline)100 Mg [id number] Mg PO HS #180 05/07/17 Ondansetron ODT 8 Mg Tab.rapdis8 Mg PO TID PRN For Nausea #90 05/07/17 Hydrocortisone 10 Mg Ogmjmw46 Mg PO DAILY #360 05/07/17 Prazosin 2 Mg Capsule4-6 Mg PO HS #180 05/07/17 Discontinued Reported Medications Fludrocortisone Acetate 0.1 Mg Tablet0.1 Mg PO DAILY Ref 0 05/07/17 History History of ENT Problems?: No HEENT History: Positive for:: Sinus Problem (chronic sinus infections. Deviated septum) Denies:: Cataracts Dysphagia Glaucoma Denture Type: None Teeth Condition: Within Normal Limits Hx of Heart Problems?: No Cardiovascular History: Denies:: Cardiac Surgery Chest Pain Congestive Heart Failure Edema Heart Murmur Hypertension Irregular Heartbeat Pacemaker Thrombophlebitis Other Cardiac History: HX of anemia Hx of Respiratory Problem?: Yes Respiratory History: Positive for:: Asthma Dyspnea (when ill, and with asthma attacks) Pneumonia Denies:: COPD Chest Surgery Emphysema Hemoptysis Tuberculosis Hx Neurologic Problems?: Yes Neurological History: Positive for:: Dizziness Headaches Denies:: Alzheimer's Disease CVA Dementia Parkinson's Disease Seizures Hx of GI Problems?: Yes Hx of Problems?: Yes Genitourinary History: Positive for:: Kidney Stones Urinary Tract Infection Denies:: HX of Hemodialysis HX of Peritoneal Dialysis: No Female Hx: Positive for:: Endometriosis Denies:: Currently Pelvic Inflammatory Problems with Breasts? Hx Musculoskeletal Problems?: Yes Musculoskeletal History: Positive for:: Back Injury Musculoskeletal Trauma (fell-fx in right knee) Denies:: Joint Replacement Psycho Social History: Positive for:: Anxiety Denies:: Bipolar Disorder Hx Depression Suicide Attempt Other Psych Pertinent History: Dx of PTSD Hx Surgeries?: Yes (55 facial surgeries to remove melenoma ) Other History: Positive for:: Cancer (melanoma since 4months old. Benign) Hospitalization Denies:: Thyroid Disease History Blood Transfusions: Positive for:: Accept Blood Products? Denies:: Blood Transfusions Hx Diabetes: No Occupation: director at [employer] Hx Alcohol Use: NoHx Substance Use: Yes (marijuana 10 years ago) Smoking Status: Never Smoker Have You Smoked inLast 12 mo: No Stop/Bang Risk Assessment Category Category 1A: Patient has history of documented sleep apnea, and HAS NOT received any narcotic, sedative or anesthesia administration during this stay. Category 1B: Patient has history of documented sleep apnea, and HAS received any narcotic , sedative or anesthesia administration during this stay Category 2: Patient has SUSPECTED Obstructive Sleep Apnea, and HAS received any narcotic , sedative or anesthesia administration during this stay. Category 3: Patient has SUSPECTED Obstructive Sleep Apnea and HAS NOT received narcotic, sedative or anesthesia administration during this stay. Category 4: Outpatient in Procedural Areas with known sleep apnea or who screen positive for High Risk via the STOP/BANG questionnaire. Exam Exam Vital Signs Vital Signs Date Time Temp Pulse Resp B/P Pulse Ox O2 Delivery O2 Flow Rate FiO2 05/13/17 10:10 59 General Appearance: Alert, Oriented X3, Cooperative, No Acute Distress HEENT/AIRWAY: MP 2 Lungs: Clear to Auscultation Heart: Regular Rate/Rhythm Meds/Labs/Diagnostics Admission Meds Current Medications Fluticasone Propionate (Flovent 100 mCg Diskus) 1 puff BID INHALATION Last administered on 05/12/17t 20:13; Start 05/12/17 at 20:30 Labs Test 05/07/17 18:59 05/07/17 20:31 05/08/17 04:36 05/08/17 10:13 Lactic Acid Level 0.5mmol/L (0.4-2.0) Lipase 31U/L (13-60) Thyroid Stimulating Hormone (TSH) 2.330uIU/mL (0.450-4.500) Urine Color Yellow (YELLOW) Urine Appearance Clear (CLEAR,HAZY) Urine pH 5.5 (5.0-8.0) Urine Specific [place] 1.010 (1.003-1.035) Urine Protein Negativemg/dL (NEG,TRACE) Urine Glucose (UA) Negativemg/dL (NEGATIVE) Urine Ketones Negativemg/dL (NEGATIVE) Urine Occult Blood Negative (NEGATIVE) Urine Nitrite Negative (NEGATIVE) Urine Bilirubin Negative (NEGATIVE) Urine Urobilinogen Normalmg/dL (NORMAL) Urine Leukocyte Esterase Trace (NEGATIVE) Urine RBC 0-2/hpf (0-2) Urine WBC 0-5/hpf (0-5) Urine Epithelial Cells Moderate/hpf (NONE-MOD) Urine Crystals None seen (NONE SEEN) Urine Bacteria None/hpf (NONE-FEW) Urine Hyaline Casts None/lpf (NONE) Urine Granular Casts None seen (NONE SEEN) Urine Waxy Casts None seen (NONE SEEN) Urine Red Blood Cell Casts None seen (NONE SEEN) Urine White Blood Cell Casts None seen (NONE SEEN) Urine Mucus None seen (None Seen) Urine Trichomonas None seen (NONE SEEN) Urine Yeast None (NONE SEEN) Urinalysis Comment None Urine Culture Reflexed Indicated Urine HCG, Qualitative Negative (Negative) Vitamin D 25-Hydroxy 15.9ng/mL (30.0-100.0) White Blood Count 7.4th/mm3 (3.8-10.1) Red Blood Count 4.26mil/mm3 (3.90-5.20) Hemoglobin 11.9g/dL (12.0-15.6) Hematocrit 37.2% (35.0-46.0) Mean Corpuscular Volume 87.3fL (81-100) Mean Corpuscular Hemoglobin 27.9pg (27.0-35.0) Mean Corpuscular Hemoglobin Concent 32.0% (32.0-37.0) Red Cell Distribution Width 14.0% (12.3-15.4) Platelet Count 195bil/L (150-400) Neutrophils (%) (Auto) 82.4% (40-74) Lymphocytes (%) (Auto) 14.8% (14-46) Monocytes (%) (Auto) 2.6% (4-12) Eosinophils (%) (Auto) 0% (0-5) Basophils (%) (Auto) 0.1% (0-3) Reticulocyte Count,Calculated 1.0% (0.6-2.6) Iron Level 177ug/dL (35-150) Total Iron Binding Capacity 261ug/dL (250-450) Percent Iron Saturation 68%sat (15-50) Unsaturated Iron Binding 84.4ug/dL Ferritin 36ng/mL (13-150) Vitamin B12 Level 580pg/mL (211-946) Folate 8.2ng/mL (>3.0) Test 05/09/17 14:50 05/11/17 05:00 05/13/17 04:52 DHEA Sulfate Interpretation 27.5ug/dL (84.8-378.0) Prothrombin Time 10.8sec (8.1-12.5) Prothromb Time International Ratio 1.01ratio Activated Partial Thromboplast Time 26.3sec (22.8-33.0) Magnesium Level 1.9mg/dL (1.6-2.6) Total Bilirubin 0.2mg/dL (0.0-1.2) Aspartate Amino Transf (AST/SGOT) 9U/L (0-50) Alanine Aminotransferase (ALT/SGPT) 5U/L (0-32) Alkaline Phosphatase 49U/L (25-150) Total Protein 6.0g/dL (6.4-8.4) Albumin 3.7g/dL (3.4-5.0) Sodium Level 139mEq/L (134-144) Potassium Level 3.7mEq/L (3.5-5.2) Chloride Level 107mEq/L (97-108) Carbon Dioxide Level 21mmol/L (18-29) Blood Urea Nitrogen 9mg/dL (6-20) Creatinine 0.94mg/dL (0.57-1.00) Estimat Glomerular Filtration Rate 98mL/min (>59) Glucose Level 95mg/dL (60-99) Calcium Level 8.7mg/dL (8.5-10.1) Plan Impression Patient chart reviewed, patient interviewed and anesthestic plan with risks, benefits, and alternatives discussed, and informed consent obtained. NPO per Anesth. Guidelines: Yes Anesthetic Plan: MAC Bene/Risks/Altern/Consents: Yes HP Complete Prior to Induction: Yes Michael Jerome MD May 13, 2017 16:01
[2017-05-13] MEDS ORDERED: Ondansetron 2 mg/mL 2 mL Inj IVPUSH PRN (17:35)
[2017-05-13] MEDS ORDERED: MetoCLOpramide 5 mg/mL 2 mL Inj IVPUSH PRN (17:35)
--- NOTE | 2017-05-13 17:46 | NUR ---
Social Work: Readiness for Discharge/Multidisciplinary Rounds D: EMR reviewed. Pt is on day 6 of hospitalization. Pt discussed in multidisciplinary rounds. Per multidisciplinary rounds, pt is likely to discharge in 1-2 days. No SW needs identified in rounds. SW will continue to follow. A: Pt is independent at baseline with capacity for self-care. P: Pt anticipate to transport home with friend via POV - No SW discharge needs identified. No MD orders received. SW will continue to follow. DELIA Pope
--- NOTE | 2017-05-13 17:52 | PCM.ENDEGD ---
EGD Date of Service: May 13, 2017 Physician Jose RAMOS I Pre Procedure Diagnosis: Nausea vomiting Post Procedure Dx & Findings: Gastritis Procedure Esophagogastroduodenoscopy PROCEDURE IN DETAIL: Sedation through anesthesiologist After proper sedation, Olympus video endoscope was inserted into patient's mouth and esophagus was successfully intubated. Scope introduced esophagus. Esophagus showed normal shiny whitish mucosa consistent with squamous cell component. Z line was intact at 40 cm from the incisors. Go further advanced to the stomach. In the antrum, there were patchy redness consistent with mild gastritis. Biopsy obtained.. Cardia fundus body antrum pylorus were all visualized. Retroflexion was done. Stomach was easily inflated and deflatable using air. Scope further advanced to the distal duodenum. Duodenum revealed normal villous structures with normal appearing folds without any mass ulcer erosion. Impression Gastritis No cause of nausea vomiting Recommendation Resume previous diet Presedation Assessment Risks and Benefits Informed consent was obtained from the patient after all risks and benefits including but not limited to drug reaction, infection, pain, bleeding, perforation, as well as alternatives were discussed. Patient monitoring Continuous pulse oximetry, cardiac monitoring, blood pressure monitoring, IV access, and oxygen at 2L per nasal cannula. Complications There were no periprocedural complications identified. Post Procedure Plan Post Procedure Recommendations 1. Restrict activities today. 2. Resume normal activities in the morning. 3. Resume medications. 4. GERD behavioral modification: - Avoid fatty, acidic, spicy, large meals - Do not lie down after meals - Do not eat or drink anything for at least 2 1/2 hours before going to bed at night - Discontinue tobacco and alcohol - Decrease or avoid caffeine - Avoid chocolate and mints - Decrease weight - Avoid aspirin and non steroidal anti-inflammatory agents (NSAID) such as Aleve, Advil, Mobic, Naproxen, Ibuprofen, etc 5. Add proton pump inhibitor. Take 30 minutes before 1st meal of the day. 6. Patient informed of normal post procedure side effects as bloating, drowsiness, blood streaking in the stool 7. If gastric biopsy reveal H.pylori, continue with appropriate treatment 8. If small bowel biopsy reveals celiac, continue with appropriate treatment 9. Please don't hesitate to call me with any questions Jose Mistry MD May 13, 2017 17:52
--- NOTE | 2017-05-13 17:55 | PCM.ANEP1 ---
Post Anesthesia PACU Phase 1 Assessment Vital Signs Vital Signs Date Time Temp Pulse Resp B/P Pulse Ox O2 Delivery O2 Flow Rate FiO2 05/13/17 17:25 36.6 64 16 124/78 96 Room Air 05/13/17 10:10 59 Anesthetic Administered: MAC Level of Alertness: Awake, talking JADE's with Equal Strength: Yes Pain: No Nausea or Vomiting: No CV Function & Hydration Stable: Yes Airway Device: Oxygen Delivery: Room Air Lungs: Clear to Auscultation PACU Phase 2 Assessment Complications: No Follow up Care: N/A Patient Instructions Provided: N/A Michael Jerome MD May 13, 2017 17:55
--- NOTE | 2017-05-13 18:56 | NUR ---
Back from endo back to room from endoscopy. ambulated SBA to bed from [facility]. reported pain. dinner at bedside. IV infusing.
[2017-05-13] MEDS: Ergocalciferol (Vit D2) 50,000 Unit Capsule PO SCH (19:57)
[2017-05-13] MEDS: Ondansetron 2 mg/mL 2 mL Inj IVPUSH PRN (21:51)
[2017-05-14 00:12] VITALS: BP 118/50; PULSE 66; RESP 17; O2SAT 95
[2017-05-14] MEDS: HYDROcodone-APAP 5-325 mg Tablet PO PRN ×4 (01:48→16:25)
[2017-05-14] MEDS: Ondansetron 2 mg/mL 2 mL Inj IVPUSH PRN (01:50)
[2017-05-14] MEDS: Dextrose 5% 0.9% NaCl 1,000 ML IV SCH (01:50)
[2017-05-14] MEDS: Promethazine Inj 12.5 MG in Dextrose 5% 50 ML IV PRN ×2 (03:52→09:49)
[2017-05-14] MEDS: HYDROmorphone 0.5 mg/0.5 mL iSecure Syringe IVPUSH PRN ×2 (03:53→08:20)
[2017-05-14 04:30] VITALS: BP 120/77; PULSE 66; RESP 17; O2SAT 95
[2017-05-14] MEDS ORDERED: Lactated Ringer's 1,000 ML IV ONE (06:00)
--- NOTE | 2017-05-14 06:35 | NUR ---
Pain/nausea Pt continues to have abdominal pain 6-8/10 and nausea, no emesis noted. Administering Zofran and 2 tabs [place] together intermittently with Phenergan and Dilaudid. Pt reports that this combination has been working but meds are needed q2 hrs around the clock. Pt IV site has started to become painful, some swelling noted, IV therapy was left a message this morning. Pt stated that she believed gastric emptying study would take place tomorrow-48 hours after HIDA scan, therefore pt has not been NPO and has continued to take narcs with hopes that study will be tomorrow.
[2017-05-14 07:14] LABS: BASOPHILS % (AUTO) 0.2 % (0-3); EOSINOPHILS % (AUTO) 0.9 % (0-5); MONOCYTES % (AUTO) 7.3 % (4-12); Mean Corpuscular Hemoglobin 28.5 pg (27.0-35.0); Mean Corpuscular Volume 87.3 fL (81-100); NEUTROPHILS % (AUTO) 54.6 % (40-74); Platelet Count 181 bil/L (150-400)
[2017-05-14 07:46] LABS: Magnesium 2.1 mg/dL (1.6-2.6)
[2017-05-14] MEDS: Fluticasone 100 mCg Inhaler INHALATION SCH ×2 (08:31→20:29)
[2017-05-14] MEDS: Ascorbic Acid 500 mg Tablet PO SCH (08:31)
[2017-05-14] MEDS: Hydrocortisone 10 mg Tablet PO SCH ×3 (08:31→17:34)
[2017-05-14] MEDS: Heparin 5,000 Unit/mL Inj SUBQ SCH ×2 (08:31→17:34)
[2017-05-14] MEDS: Famotidine Inj 20 MG in IV Premix 1 EACH IV SCH ×2 (08:31→22:14)
[2017-05-14] MEDS: Ergocalciferol (Vit D2) 50,000 Unit Capsule PO SCH (08:33)
--- NOTE | 2017-05-14 12:04 | PCM.PNMED ---
Subjective Date of Service May 14, 2017 Subjective Continues to have epigastric pain but slightly improved. Endoscopy shows gastritis only. HIDA scan negative. Awaiting gastric emptying test Exam Vital Signs Vital Sign - Last Date Time Temp Pulse Resp B/P Pulse Ox O2 Delivery O2 Flow Rate FiO2 05/14/17 04:30 36.6 66 17 120/77 95 Room Air Intake and Output 05/13/17 05/13/17 05/14/17 Cumulative From/Thru 15:00 23:00 07:00 05/07/17 17:07 - 05/14/17 06:26 Intake Total 784 ml 668 ml 1958 ml 64869 ml Output Total 650 ml 1050 ml 49487 ml Balance 134 ml 668 ml 908 ml 6387 ml Intake Oral 784 ml 1958 ml 44459 ml IV Total 668 ml 74965 ml Output Urine Total 650 ml 1050 ml 17483 ml Emesis 80 ml # Voids 3 5 # Bowel Movements 3 0 4 Exam General: Alert, Cooperative, No Acute Distress Head: Normal Eyes: Scleral Anicteric Nose: Mucous Membr Moist/[place] Mouth: Mucous Membr Moist/[place] Neck: Supple Chest & Lungs: Chest Wall Normal, Clear to auscultation bilat Cardiovascular: Regular Rate/Rhythm Pulses: NL DP, PT Abdomen: Mild Tendererness at epigastric area, Non-distended, Normoactive bowel tones, Soft Extremities: No cyanosis/clubbing/edema bilat Neurological: Grossly Neurologically Intact, Normal Speech IVs and Medications Medications Reviewed: Medications were reviewed in detail Lab and Diagnostics Result Diagram: 05/14/17 0706 05/14/17 0706 X-Rays, CTs and MRIs Chest x-ray performed 05/07/2017 IMPRESSION: No acute cardiopulmonary disease process. Dictated by: Agnieszka Marmolejo MD, PhD on 05/07/2017 at 20:[address] without contrast performed 05/07/2017 IMPRESSION: No acute intracranial disease process. Dictated by: Agnieszka Marmolejo MD, PhD on 05/07/2017 at 21:48 PROCEDURE: CT ABDOMEN AND PELVIS WITH CONTRAST (PNL-7102) INDICATIONS: abd pain IMPRESSION: Normal appendix found, no sign of biliary distention, no urinary tract abnormality seen. Source of current symptoms is not found. Dictated by: Fer Teixeira M.D. on 05/08/2017 at 19:44 Additional Diagnostics Date of Service: May 13, 2017 Physician Jose RAMOS I Pre Procedure Diagnosis: Nausea vomiting Post Procedure Dx & Findings: Gastritis Procedure Esophagogastroduodenoscopy PROCEDURE IN DETAIL: Sedation through anesthesiologist After proper sedation, Olympus video endoscope was inserted into patient's mouth and esophagus was successfully intubated. Scope introduced esophagus. Esophagus showed normal shiny whitish mucosa consistent with squamous cell component. Z line was intact at 40 cm from the incisors. Go further advanced to the stomach. In the antrum, there were patchy redness consistent with mild gastritis. Biopsy obtained.. Cardia fundus body antrum pylorus were all visualized. Retroflexion was done. Stomach was easily inflated and deflatable using air. Scope further advanced to the distal duodenum. Duodenum revealed normal villous structures with normal appearing folds without any mass ulcer erosion. 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 # Intractable Acute on chronic abdominal pain with associated nausea/vomiting, present on admission. Ongoing - due to irritable bowel syndrome vs gastroparesis versus adrenal insufficiency vs others. - CT Abd/Pelvis unremarkable - Continue with supportive care including IV Dilaudid prn.will wean off IV narcotics in preparation for discharge - GI consulted . EGD 05/13 gastritis. HIDA scan negative. gastric emptying test pending # Acute on chronic adrenal insufficiency, present on admission, active - Blood pressure stable, no hyperpigmentation. - Received 100 mg IV hydrocortisone succinate in the emergency department, IV fluids - Hydrocortisone succinate IV 100 mg every 6 hours continued on admission but changed to home PO meds - Endocrinology consulted on 05/09/17. Appreciate Dr. Pena's recommendations. Will followup with recs - Oral hydrocortisone increased to 40, 20, 20 daily for now. - Continue Florinef 0.1 mg per day -will arrange endocrinology follow-up with Dr. Pena output up on discharge # Acute hypokalemia. not present on admission. Ongoing. - Repleted and followup # Acute kidney injury. Present on admission, resolved # Acute on chronic migraine, present on admission, active - Patient takes topiramate for treatment and prophylaxis, will continue. - Acetaminophen prn # Chronic asthma, present on admission, Stable - Continue Pulmicort as needed - Continue albuterol inhaler as needed - Continue albuterol nebulizer as needed # Chronic anxiety and PTSD, POA, Stable - Continue sertraline, prazosin, trazodone # Chronic obesity, present on admission, active - BMI 35.8 - Dietitian consult ordered. Dispo: Possible discharge tomorrow pending improved GI symptoms and gastric emptying test GI Prophylaxis: H2 nathalie VTE Prophylaxis: Sub-Q Heparin (Unfractionated) VTE Mechanical Devices: Intermittant Pneumatic CD Resuscitation Status: CPR: Attempt Resuscitation Igor Heart MD May 14, 2017 12:04 VTE Mechanical Devices: Intermittant Pneumatic CD Resuscitation Status: CPR: Attempt Resuscitation Igor Heart MD May 14, 2017 12:04
[2017-05-14 15:09] LABS: Renin Activity <0.167 ng/mL/hr (0.167-5.380)
--- NOTE | 2017-05-14 15:37 | PCM.PNMED ---
Subjective Date of Service May 14, 2017 Subjective Patient tolerating diet. She is not vomiting anymore. She still says she is nauseated. Abdominal pain worse today than yesterday. Exam Vital Signs Vital Sign - Last Date Time Temp Pulse Resp B/P Pulse Ox O2 Delivery O2 Flow Rate FiO2 05/14/17 04:30 36.6 66 17 120/77 95 Room Air Intake and Output 05/13/17 05/13/17 05/14/17 Cumulative From/Thru 15:00 23:00 07:00 05/07/17 17:07 - 05/14/17 06:26 Intake Total 784 ml 668 ml 1958 ml 47223 ml Output Total 650 ml 1050 ml 32634 ml Balance 134 ml 668 ml 908 ml 6387 ml Intake Oral 784 ml 1958 ml 02049 ml IV Total 668 ml 85668 ml Output Urine Total 650 ml 1050 ml 53432 ml Emesis 80 ml # Voids 3 5 # Bowel Movements 3 0 4 Exam Patient is alert and oriented mild distress Head and neck no icterus Lungs clear Cardia vascular regular rate and rhythm with no associated Abdomen soft mild upper abdomen tenderness no guarding rebound or firmness nondistended with normal bowel sounds Extremities no edema of Ankles Skin shows no jaundice Lab and Diagnostics Result Diagram: 05/14/17 0706 05/14/17 0706 X-Rays, CTs and MRIs Chest x-ray performed 05/07/2017 IMPRESSION: No acute cardiopulmonary disease process. Dictated by: Agnieszka Marmolejo MD, PhD on 05/07/2017 at 20:[address] without contrast performed 05/07/2017 IMPRESSION: No acute intracranial disease process. Dictated by: Agnieszka Marmolejo MD, PhD on 05/07/2017 at 21:48 PROCEDURE: CT ABDOMEN AND PELVIS WITH CONTRAST ([id number]) INDICATIONS: abd pain IMPRESSION: Normal appendix found, no sign of biliary distention, no urinary tract abnormality seen. Source of current symptoms is not found. Dictated by: Fer Teixeira M.D. on 05/08/2017 at 19:44 Additional Diagnostics Date of Service: May 13, 2017 Physician Jose RAMOS I Pre Procedure Diagnosis: Nausea vomiting Post Procedure Dx & Findings: Gastritis Procedure Esophagogastroduodenoscopy PROCEDURE IN DETAIL: Sedation through anesthesiologist After proper sedation, Olympus video endoscope was inserted into patient's mouth and esophagus was successfully intubated. Scope introduced esophagus. Esophagus showed normal shiny whitish mucosa consistent with squamous cell component. Z line was intact at 40 cm from the incisors. Go further advanced to the stomach. In the antrum, there were patchy redness consistent with mild gastritis. Biopsy obtained.. Cardia fundus body antrum pylorus were all visualized. Retroflexion was done. Stomach was easily inflated and deflatable using air. Scope further advanced to the distal duodenum. Duodenum revealed normal villous structures with normal appearing folds without any mass ulcer erosion. 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 She had an upper endoscopy which showed moderate gastritis. Biopsy done pending. HIDA scan was unremarkable. Gastric emptying study will be done tomorrow. The abdominal pain she said worsens after she eats. This could be due to gastroparesis. But she seems to be tolerating her diet. Pain seems to be under adequate control based on the patient's perception. I would minimize narcotic intake. Make sure she has a daily bowel movement using stool softener if needed. Awaiting gastric emptying study. GI Prophylaxis: H2 nathalie VTE Prophylaxis: Sub-Q Heparin (Unfractionated) VTE Mechanical Devices: Intermittant Pneumatic CD Resuscitation Status: CPR: Attempt Resuscitation Jose Mistry MD May 14, 2017 15:37
[2017-05-14 15:52] VITALS: BP 131/73; PULSE 69; RESP 16; O2SAT 96
--- NOTE | 2017-05-14 19:18 | NUR ---
Pain / nausea c/o pain 7-06/08. Vicodin works well but doesn't last long enough. Pt concerned that the DRs took away her IV medication so fast. Pt states that "if I would have know that they were going to stop my medications so fast I would have watched what I ate more to prevent this nausea and pain." Educated pt regarding the fact that she should be conscious of what she is eating at all times because we need to ensure that she can be comfortable at home. No apparent moaning or grimacing noted. Pt ambulates well with steady agit to bathroom. Care continues
--- NOTE | 2017-05-14 19:21 | NUR ---
Gastric Empty Study Ordered to be done on . Per NUC med pt can NOT be given any Reglan for 48hrs pre procedure. Also NPO at midnight. NOTE that pt is allergic to EGGs. Care continues
[2017-05-14 20:07] VITALS: BP 119/78; PULSE 66; RESP 16; O2SAT 95
[2017-05-14] MEDS: HYDROmorphone 1 mg/mL Inj IVPUSH PRN (20:33)
[2017-05-15] MEDS: Heparin 5,000 Unit/mL Inj SUBQ SCH ×3 (00:42→17:31)
[2017-05-15] MEDS: HYDROmorphone 1 mg/mL Inj IVPUSH PRN ×2 (00:44→06:20)
--- NOTE | 2017-05-15 02:28 | NUR ---
Pain/ nausea Patient tolerated Zofran well, denies nausea at this time. Persistent pain being managed at this time with 0.5 mg Dilaudid, effective at this time. NPO at midnight. Bed in low position, call light within reach, intentional rounding as care continues.
[2017-05-15 06:06] VITALS: BP 118/79; PULSE 61; RESP 18; O2SAT 94
[2017-05-15] MEDS: Hydrocortisone 10 mg Tablet PO SCH ×4 (08:30→17:32)
[2017-05-15 13:21] VITALS: BP 104/69; PULSE 70; RESP 18; O2SAT 98
--- NOTE | 2017-05-15 13:37 | NUR ---
NUTRITION ASSESSMENT: ASSESS: 32YO F admit with abdominal pain, n/v--somewhat improved per MD notes. EGD revealed gastritis, pt to undergo gastric emptying study. PMHX: IBS,Melanoma to face, Primary renal insufficiency DIET: General. PO 100% LABS: Alb 3.8, Glu 105 MEDS: GI: 3 BM 05/13 WEIGHT: 115.0kg; Admit wt:110kg BMI: 37.4 EST.NEEDS: OBESITY (20-22kcal/kg;1.2-1.5g/kg IBW) Kcal: 1981-2041 Pro: 80-100g NUTRITION DIAGNOSIS: (1) Altered GI tract function related to unknown etiology--gastric emptying study pending as evidenced by persistent abdominal pain, n/v. INTERVENTION: (1) No intervention at this time. MONITOR/EVALUATE: GI status, po intake, lab values. F/U per low risk guidelines.
[2017-05-15] MEDS: Famotidine Inj 20 MG in IV Premix 1 EACH IV SCH (13:42)
[2017-05-15] MEDS: Ascorbic Acid 500 mg Tablet PO SCH (14:33)
[2017-05-15] MEDS: Ergocalciferol (Vit D2) 50,000 Unit Capsule PO SCH (14:34)
[2017-05-15] MEDS: Fluticasone 100 mCg Inhaler INHALATION SCH (14:36)
[2017-05-15] MEDS: HYDROcodone-APAP 5-325 mg Tablet PO PRN (14:42)
[2017-05-15 16:14] VITALS: BP 133/83; PULSE 91; RESP 18; O2SAT 95
--- NOTE | 2017-05-15 16:43 | DRSVH ---
PROCEDURE: IA GASTRIC EMPTYING STUDY (12110) RADIOPHARMACEUTICAL: 511 mCi Tc-99m sulfur colloid in an egg sandwich. INDICATIONS: ABD PAIN. TECHNIQUE: A Tc-99m labeled sulfur colloid labeled egg sandwich or oatmeal was served to the patient. Anterior and posterior planar images of the abdomen were obtained at 0 minutes and 30 minutes, then at hourly intervals up to 4 hours. The patient was upright and ambulating during the interval. COMPARISON: None. FINDINGS: The stomach has normal size, morphology, and position. There is normal emptying of solid gastric con tents from the stomach by visual inspection. No gastroesophageal reflux is visualized. The percentage of tracer retained at specific time points are as follows: Time point Percent gastric retention Normal range 30 minutes 83% 70% or more 1 hour 60% 30% to 90% 2 hours 31% 60% or less 3 hours 17% 30% or less 4 hours 10% 10% or less IMPRESSION: Normal gastric emptying. Dictated by: Edyta Mora M.D. on 05/15/2017 at 16:40 Approved by: Edyta Mora M.D. on 05/15/2017 at 16:41
--- NOTE | 2017-05-15 17:15 | PCM.DIMED ---
Discharge Instructions Date of Service May 15, 2017 Dates of Hospitalization May 07, 2017 at 21:40 Discharge Diagnosis Discharge Diagnosis # Intractable Acute on chronic abdominal pain with associated nausea/vomiting, present on admission. Ongoing - due to irritable bowel syndrome vs adrenal insufficiency # Acute on chronic adrenal insufficiency, present on admission, active # Acute hypokalemia. not present on admission. Ongoing. # Acute kidney injury. Present on admission, resolved # Acute on chronic migraine, present on admission, active # Chronic asthma, present on admission, Stable # Chronic anxiety and PTSD, POA, Stable # Chronic obesity, present on admission, Diet Discharge Diet: Low fat, Low Sodium Activity Discharge Activity: Limited until seen by PCP Call your provider Call your provider for: Fever or Chills, Shortness of breath, Bleeding, Chest pain, Vomitting, Excessive diarrhea, Weakness (unilateral) Patient Instructions Patient Instructions You were hospitalized due to abdominal pain. Extensive workup did not reveal etiology of pain . Pain seems to be due to adrenal insufficency . Please continue Florinef as usual . Please take hydrocortisone 40mg am,20mg noon and 20mg bedtime for today,taper to 40mg in am and 20 mg at bed time for 2 days and taper down to your usual 40mg daily . You can go back to 40:20:20 regimen for 3 days if you have any minor illnesses .Please follow up with [employer] Dr Pena in 1 week for further adjustment . please take protonix for gastritis. Please take zofran for nausea . Follow-up with PCP in: 2 weeks Provider: Filemon Pena MD Follow-up in: 1 week Igor Heart MD May 15, 2017 17:14
[2017-05-15] MEDS ORDERED: FLUD0.1T PO (17:17)
[2017-05-15] MEDS ORDERED: HYDR10TA12 PO ×2 (17:17)
[2017-05-15] MEDS ORDERED: PANT20T PO (17:35)
--- NOTE | 2017-05-15 17:36 | NUR ---
Discharge Instructions Per Dr Heart, give 40mg PO Cortef now instead of 20mg dose due; instruct pt at discharge to not take PO 20mg dose due tonight and continue with 40mg PO Cortef tomorrow morning and 20mg PO Cortef at night and continue this for the next two days. Rx for Pepcid prescribed and pt to stop taking PO Ibuprofen. Pt states understanding to changes made.
--- NOTE | 2017-05-15 17:44 | NUR ---
Social Work- Discharge Data: Pt to discharge home today, discharge orders are active. Pt's friend to transport via POV. No discharge needs. Assessment: Pt who is independent at baseline. Plan: Pt to d/c home, transport via POV. No d/c needs. Sallie Metcalf MSW
[2017-05-15] MEDS ORDERED: OXYC1TAB24 PO (18:04)
--- NOTE | 2017-05-15 18:28 | NUR ---
Discharge Pt to discharge to home with her friend; A&Ox3, VSS, c/o pain at tolerable level when MD in the room recently, 1 IV access discontinued. Pt has original Rx's in her possession along with written and verbal discharge instructions to which she states understanding. Pt to f/u with PCP in [address] Pena in 1 week, pt to start taking PO Hydrocortisone 40mg tomorrow morning and continue with PO Hydrocortisone 20mg PO at 12 & 1700 tomorrow to which pt states understanding. Pt encouraged to take all medications as prescribed and to follow heart healthy, low fat diet and limited activity until seen by PCP. All personal belongings with patient and pt's friend at time of discharge.
--- NOTE | 2017-05-15 18:42 | PCM.PNMED ---
Subjective Date of Service May 15, 2017 Subjective Patient feels better. She said nausea is under control and abdominal discomfort is under control. She is tolerating her diet. Exam Vital Signs Vital Sign - Last Date Time Temp Pulse Resp B/P Pulse Ox O2 Delivery O2 Flow Rate FiO2 05/15/17 16:14 36.9 91 18 133/83 95 Room Air Intake and Output 05/14/17 05/14/17 05/15/17 Cumulative From/Thru 15:00 23:00 07:00 05/07/17 17:07 - 05/15/17 06:25 Intake Total 363 ml 476 ml 68748 ml Output Total 1000 ml 1100 ml 00835 ml Balance -637 ml -624 ml 5126 ml Intake Oral 363 ml 476 ml 90310 ml IV Total 99586 ml Output Urine Total 1000 ml 1100 ml 50289 ml Emesis 80 ml # Voids 5 # Bowel Movements 0 4 Exam Patient is alert and oriented appears comfortable. Head and neck no icterus Lungs clear Vascular regular rhythm normal S1 and S2 Abdomen soft minimal tenderness in the upper abdomen no guarding rebound or firmness nondistended with normoactive bowel sounds Extremities no pitting edema ankles Skin shows no jaundice. Lab and Diagnostics Result Diagram: 05/14/17 0706 05/14/17 0706 X-Rays, CTs and MRIs Chest x-ray performed 05/07/2017 IMPRESSION: No acute cardiopulmonary disease process. Dictated by: Agnieszka Marmolejo MD, PhD on 05/07/2017 at 20:[address] without contrast performed 05/07/2017 IMPRESSION: No acute intracranial disease process. Dictated by: Agnieszka Marmolejo MD, PhD on 05/07/2017 at 21:48 PROCEDURE: CT ABDOMEN AND PELVIS WITH CONTRAST ([id number]) INDICATIONS: abd pain IMPRESSION: Normal appendix found, no sign of biliary distention, no urinary tract abnormality seen. Source of current symptoms is not found. Dictated by: Fer Teixeira M.D. on 05/08/2017 at 19:44 Additional Diagnostics Date of Service: May 13, 2017 Physician Jose RAMOS I Pre Procedure Diagnosis: Nausea vomiting Post Procedure Dx & Findings: Gastritis Procedure Esophagogastroduodenoscopy PROCEDURE IN DETAIL: Sedation through anesthesiologist After proper sedation, Olympus video endoscope was inserted into patient's mouth and esophagus was successfully intubated. Scope introduced esophagus. Esophagus showed normal shiny whitish mucosa consistent with squamous cell component. Z line was intact at 40 cm from the incisors. Go further advanced to the stomach. In the antrum, there were patchy redness consistent with mild gastritis. Biopsy obtained.. Cardia fundus body antrum pylorus were all visualized. Retroflexion was done. Stomach was easily inflated and deflatable using air. Scope further advanced to the distal duodenum. Duodenum revealed normal villous structures with normal appearing folds without any mass ulcer erosion. 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 She had an upper endoscopy which showed moderate gastritis. Biopsy done pending. HIDA scan was unremarkable. Gastric emptying study was unremarkable. Currently, her nausea is under control abdominal pain is under control and she is able to eat. There titrating her steroids. She feels much better. In fact was the first state she saw me and smiled that things are okay. Prior to discharge, I would stop the ibuprofen or NSAIDs due to her gastritis. I will send her out on low dose Prilosec 20 mg once a day for gastritis. I will sign off. GI Prophylaxis: H2 nathalie VTE Prophylaxis: Sub-Q Heparin (Unfractionated) VTE Mechanical Devices: Intermittant Pneumatic CD Resuscitation Status: CPR: Attempt Resuscitation Jose Mistry MD May 15, 2017 18:42
--- NOTE | 2017-05-15 20:51 | PCM.DC.MED ---
Discharge Summary Date of Service May 15, 2017 Dates of Hospitalization Date of Hospital Admission May 07, 2017 at 21:40 Date of Discharge: May 15, 2017 Providers: Admitting Physician: Jose Hathaway MD Primary Care Physician: Nopcp Attending Physician: Igor Bryant MD Diagnosis at Time of Discharge Diagnosis at Time of Discharge # Intractable Acute on chronic abdominal pain with associated nausea/vomiting, present on admission. Ongoing - due to irritable bowel syndrome vs adrenal insufficiency # Acute on chronic adrenal insufficiency, present on admission, active # Acute hypokalemia. not present on admission. Ongoing. # Acute kidney injury. Present on admission, resolved # Acute on chronic migraine, present on admission, active # Chronic asthma, present on admission, Stable # Chronic anxiety and PTSD, POA, Stable # Chronic obesity, present on admission, Consultations GI Dr Mistry endocrinology Dr Pena Procedures XRay, CTs & MRIs Chest x-ray performed 05/07/2017 IMPRESSION: No acute cardiopulmonary disease process. Dictated by: Agnieszka Marmolejo MD, PhD on 05/07/2017 at 20:[address] without contrast performed 05/07/2017 IMPRESSION: No acute intracranial disease process. Dictated by: Agnieszka Marmolejo MD, PhD on 05/07/2017 at 21:48 PROCEDURE: CT ABDOMEN AND PELVIS WITH CONTRAST ([id number]) INDICATIONS: abd pain IMPRESSION: Normal appendix found, no sign of biliary distention, no urinary tract abnormality seen. Source of current symptoms is not found. Dictated by: Fer Teixeira M.D. on 05/08/2017 at 19:44 PROCEDURE: NM GASTRIC EMPTYING STUDY ([id number]) RADIOPHARMACEUTICAL: 511 mCi Tc-99m sulfur colloid in an egg sandwich. INDICATIONS: ABD PAIN. TECHNIQUE: A Tc-99m labeled sulfur colloid labeled egg sandwich or oatmeal was served to the patient. Anterior and posterior planar images of the abdomen were obtained at 0 minutes and 30 minutes, then at hourly intervals up to 4 hours. The patient was upright and ambulating during the interval. COMPARISON: None. FINDINGS: The stomach has normal size, morphology, and position. There is normal emptying of solid gastric contents from the stomach by visual inspection. No gastroesophageal reflux is visualized. The percentage of tracer retained at specific time points are as follows: Time point Percent gastric retention Normal range 30 minutes 83% 70% or more 1 hour 60% 30% to 90% 2 hours 31% 60% or less 3 hours 17% 30% or less 4 hours 10% 10% or less IMPRESSION: Normal gastric emptying. Dictated by: Edyta Mora M.D. on 05/15/2017 at 16:40 Other Diagnostics Date of Service: May 13, 2017 Physician Jose RAMOS I Pre Procedure Diagnosis: Nausea vomiting Post Procedure Dx & Findings: Gastritis Procedure Esophagogastroduodenoscopy PROCEDURE IN DETAIL: Sedation through anesthesiologist After proper sedation, Olympus video endoscope was inserted into patient's mouth and esophagus was successfully intubated. Scope introduced esophagus. Esophagus showed normal shiny whitish mucosa consistent with squamous cell component. Z line was intact at 40 cm from the incisors. Go further advanced to the stomach. In the antrum, there were patchy redness consistent with mild gastritis. Biopsy obtained.. Cardia fundus body antrum pylorus were all visualized. Retroflexion was done. Stomach was easily inflated and deflatable using air. Scope further advanced to the distal duodenum. Duodenum revealed normal villous structures with normal appearing folds without any mass ulcer erosion. Impression Gastritis No cause of nausea vomiting Recommendation Resume previous diet Brief History per HPI The patient is a 32-year-old woman with a history of adrenal insufficiency since 2010. She was diagnosed and has been managed by Dr. Livingston at [facility]. Details of original diagnosis are unclear. She was told by doctors at that time that she did not fit any of the usual categories. Over the past 7 years she has had hospital treatment requiring stress dose steroids are approximately 7 occasions. Some of these have been postoperative and others have been spontaneous. She has been managed on relatively high doses of hydrocortisone and has managed to taper to 40 mg a day, taken as 20 every morning, 10 at noon, 10 at 5-6 PM daily. Her usual stress dose coverage is to double to 80 mg daily for several days in the event of minor illness. 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 Approximate 6 days prior to admission she began to experience nausea, diffuse abdominal pain and anorexia. She fell on the stairs and experienced hip pain and was evaluated in urgent care. Upon referral to the ED she received steroids briefly but then was discharged home. She has been unable to hold down medications for approximately 4 days prior to admission, and felt herself becoming dehydrated. Postural lightheadedness but no syncope. No significant diarrhea. She was evaluated in urgent care approximately 4 days prior to admission and told to take stress dose steroids at home, but was unable due to nausea. She returned home and contacted her web operations lead who referred her to urgent care. At the second visit to urgent care she was referred for hospitalization. The time of admission she was treated with 100 mg hydrocortisone every 6 hours. Since admission her vomiting has improved and she is now able to take pills but limited oral food and fluid intake. 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 # Intractable Acute on chronic abdominal pain with associated nausea/vomiting, present on admission. Ongoing - due to irritable bowel syndrome vs versus adrenal insufficiency - CT Abd/Pelvis unremarkable - GI consulted . EGD 05/13 gastritis. c/w protonix 20mg bid .HIDA scan negative. gastric emptying test negative # Acute on chronic adrenal insufficiency, present on admission, active - Blood pressure stable, no hyperpigmentation. - Received 100 mg IV hydrocortisone succinate in the emergency department, IV fluids - Hydrocortisone succinate IV 100 mg every 6 hours continued on admission but changed to home PO meds - Endocrinology consulted on 05/09/17. Appreciate Dr. Pena's recommendations. Will followup with recs - Oral hydrocortisone increased to 40, 20, 20 daily for now.taper to 40mg in am to 20mg hs for 2 days then back to baseline 40mg daily .follow up with Dr Pena in 1-2 week - Continue Florinef 0.1 mg per day -patient has some cushingoid features ,seems to be taking more than needed steroid .Dr Pena to adjust meds outpatient # Acute hypokalemia. not present on admission. Ongoing. - Repleted # Acute kidney injury. Present on admission, resolved # Acute on chronic migraine, present on admission, active - Patient takes topiramate for treatment and prophylaxis, will continue. - Acetaminophen prn # Chronic asthma, present on admission, Stable - Continue Pulmicort as needed - Continue albuterol inhaler as needed # Chronic anxiety and PTSD, POA, Stable - Continue sertraline, prazosin, trazodone # Chronic obesity, present on admission, active - BMI 35.8 Dispo: discharge home Exam Vital Signs (Last) Date Time Temp Pulse Resp B/P Pulse Ox O2 Delivery O2 Flow Rate FiO2 05/15/17 16:14 36.9 91 18 133/83 95 Room Air Exam General: Alert, Cooperative, No Acute Distress Head: Normal Eyes: Scleral Anicteric Nose: Mucous Membr Moist/[place] Mouth: Mucous Membr Moist/[place] Neck: Supple Chest & Lungs: Chest Wall Normal, Clear to auscultation bilat Cardiovascular: Regular Rate/Rhythm Pulses: NL DP, PT Abdomen: Mild Tendererness at epigastric area, Non-distended, Normoactive bowel tones, Soft Extremities: No cyanosis/clubbing/edema bilat Neurological: Grossly Neurologically Intact, Normal Speech Test 05/07/17 18:59 05/07/17 20:31 05/08/17 04:36 05/08/17 10:13 Lactic Acid Level 0.5mmol/L (0.4-2.0) Lipase 31U/L (13-60) Thyroid Stimulating Hormone (TSH) 2.330uIU/mL (0.450-4.500) Urine Color Yellow (YELLOW) Urine Appearance Clear (CLEAR,HAZY) Urine pH 5.5 (5.0-8.0) Urine Specific [employer] 1.010 (1.003-1.035) Urine Protein Negativemg/dL (NEG,TRACE) Urine Glucose (UA) Negativemg/dL (NEGATIVE) Urine Ketones Negativemg/dL (NEGATIVE) Urine Occult Blood Negative (NEGATIVE) Urine Nitrite Negative (NEGATIVE) Urine Bilirubin Negative (NEGATIVE) Urine Urobilinogen Normalmg/dL (NORMAL) Urine Leukocyte Esterase Trace (NEGATIVE) Urine RBC 0-2/hpf (0-2) Urine WBC 0-5/hpf (0-5) Urine Epithelial Cells Moderate/hpf (NONE-MOD) Urine Crystals None seen (NONE SEEN) Urine Bacteria None/hpf (NONE-FEW) Urine Hyaline Casts None/lpf (NONE) Urine Granular Casts None seen (NONE SEEN) Urine Waxy Casts None seen (NONE SEEN) Urine Red Blood Cell Casts None seen (NONE SEEN) Urine White Blood Cell Casts None seen (NONE SEEN) Urine Mucus None seen (None Seen) Urine Trichomonas None seen (NONE SEEN) Urine Yeast None (NONE SEEN) Urinalysis Comment None Urine Culture Reflexed Indicated Urine HCG, Qualitative Negative (Negative) Vitamin D 25-Hydroxy 15.9ng/mL (30.0-100.0) Reticulocyte Count,Calculated 1.0% (0.6-2.6) Iron Level 177ug/dL (35-150) Total Iron Binding Capacity 261ug/dL (250-450) Percent Iron Saturation 68%sat (15-50) Unsaturated Iron Binding 84.4ug/dL Ferritin 36ng/mL (13-150) Vitamin B12 Level 580pg/mL (211-946) Folate 8.2ng/mL (>3.0) Test 05/09/17 14:50 05/11/17 05:00 05/14/17 07:06 Renin Activity <0.167ng/mL/hr (0.167-5.380) Aldosterone <1.0ng/dL (0.0-30.0) DHEA Sulfate Interpretation 27.5ug/dL (84.8-378.0) Prothrombin Time 10.8sec (8.1-12.5) Prothromb Time International Ratio 1.01ratio Activated Partial Thromboplast Time 26.3sec (22.8-33.0) White Blood Count 10.7th/mm3 (3.8-10.1) Red Blood Count 4.11mil/mm3 (3.90-5.20) Hemoglobin 11.7g/dL (12.0-15.6) Hematocrit 35.9% (35.0-46.0) Mean Corpuscular Volume 87.3fL (81-100) Mean Corpuscular Hemoglobin 28.5pg (27.0-35.0) Mean Corpuscular Hemoglobin Concent 32.6% (32.0-37.0) Red Cell Distribution Width 14.9% (12.3-15.4) Platelet Count 181bil/L (150-400) Neutrophils (%) (Auto) 54.6% (40-74) Lymphocytes (%) (Auto) 36.2% (14-46) Monocytes (%) (Auto) 7.3% (4-12) Eosinophils (%) (Auto) 0.9% (0-5) Basophils (%) (Auto) 0.2% (0-3) Sodium Level 139mEq/L (134-144) Potassium Level 3.9mEq/L (3.5-5.2) Chloride Level 106mEq/L (97-108) Carbon Dioxide Level 20mmol/L (18-29) Blood Urea Nitrogen 8mg/dL (6-20) Creatinine 1.00mg/dL (0.57-1.00) Estimat Glomerular Filtration Rate 91mL/min (>59) Glucose Level 105mg/dL (60-99) Calcium Level 8.5mg/dL (8.5-10.1) Magnesium Level 2.1mg/dL (1.6-2.6) Total Bilirubin 0.2mg/dL (0.0-1.2) Aspartate Amino Transf (AST/SGOT) 15U/L (0-50) Alanine Aminotransferase (ALT/SGPT) 5U/L (0-32) Alkaline Phosphatase 59U/L (25-150) Total Protein 6.2g/dL (6.4-8.4) Albumin 3.8g/dL (3.4-5.0) Discharge Medications Discharge Medications Ascorbate Calcium (Vitamin C) 500 Mg Tablet 500 MG PO DAILY (Reported) Budesonide (Pulmicort Flexhaler) 60 Puff/Inh Inhaler 2 PUFFS PO BID (Reported) Cyanocobalamin (Vitamin B-12) (Vitamin B-12) 1,000 Mcg Tablet 2,000 MCG PO BID ( Reported) Ergocalciferol (Vitamin D2) (Vitamin D2) 2,000 Unit Tablet 50,000 UNIT PO DAILY (Reported) Ferrous Gluconate (Ferrous Gluconate) 324 Mg Tab 648 MG PO DAILY (Reported) Fludrocortisone Acetate (Fludrocortisone Acetate) 0.1 Mg Tablet 0.1 MG PO DAILY Prescribed by: IGOR BRYANT MD Hydrocortisone (Hydrocortisone) 10 Mg Tablet 40 MG PO DAILY Prescribed by: IGOR BRYANT MD Hydrocortisone (Hydrocortisone) 10 Mg Tablet 20 MG PO Prescribed by: IGOR BRYANT MD Pantoprazole DR (Protonix) 20 Mg Tablet 20 MG PO BID Prescribed by: IGOR BRYANT MD Prazosin (Prazosin) 2 Mg Capsule 4-6 MG PO HS (Reported) Sertraline HCl (Sertraline) 100 Mg Tablet 200 MG PO HS (Reported) Topiramate (Topiramate) 25 Mg Tablet 50 MG PO DAILY (Reported) Topiramate (Topiramate) 25 Mg Tablet 25 MG PO HS (Reported) As needed Albuterol HFA (Proair HFA) 8.5 Gm Hfa.aer.ad 2 PUFFS INHALATION Q4H PRN PRN ASTHMA (Reported) Albuterol Neb Soln (Albuterol Neb Soln) 2.5 Mg/3 Ml Vial.neb 2.5 MG INHALATION Q4H PRN PRN ASTHMA (Reported) Epinephrine (Epipen 2-Selvin) 0.3 Mg/0.3 Ml Auto.injct 0.3 MG IJ DIRECTED PRN PRN ALLERGY (Reported) Hydrocodone-Acetaminophen 5-325 mg (Hydrocodone-Acetaminophen 5-325 mg) 1 Each Tablet 1 TABLET PO Q4H PRN PRN For Pain (Reported) Ondansetron ODT (Ondansetron ODT) 8 Mg Tab.rapdis 8 MG PO TID PRN PRN For Nausea (Reported) Trazodone (Trazodone) 100 Mg Tablet 100-150 MG PO HS PRN PRN INSOM (Reported) oxyCODONE-Acetaminophen 5-325 mg (oxyCODONE-Acetaminophen 5-325 mg) 1 Each Tablet 1 TAB PO Q6H PRN PRN For Pain Prescribed by: IGOR BRYANT MD Followup Plan Discharge Diet: Low fat, Low Sodium Discharge Activity: Limited until seen by PCP Patient Instructions You were hospitalized due to abdominal pain. Extensive workup did not reveal etiology of pain . Pain seems to be due to adrenal insufficency . Please continue Florinef as usual . Please take hydrocortisone 40mg am,20mg noon and 20mg bedtime for today,taper to 40mg in am and 20 mg at bed time for 2 days and taper down to your usual 40mg daily . You can go back to 40:20:20 regimen for 3 days if you have any minor illnesses .Please follow up with web operations lead Dr Pena in 1 week for further adjustment . please take protonix for gastritis. Please take zofran for nausea . Follow-up with PCP in: 2 weeks Provider: Filemon Pena MD Follow-up in: 1 week Time spent 35 minutes copies to: Filemon Pena MD, Melaku MD May 15, 2017 20:51
[2017-05-16] MEDS ORDERED: MetoCLOpramide 5 mg/mL 2 mL Inj IVPUSH PRN (21:00)
--- NOTE | 2017-05-19 13:55 | PATH ---
SURGICAL PATHOLOGY Attending Physician:Jose Mistry M.D. CASE STATUS: Signed Out PATIENT NAME: BLAIR LAGOS PID: [id number] : 1985 DATE COLLECTED:05/13/2017 00:00 SPECIMEN: Gastric, Biopsy CLINICAL HISTORY: 1). GASTRIC BIOPSY RULE OUT H PYLORI FINAL DIAGNOSIS: Stomach, Biopsy: Gastric antral mucosa with reactive gastropathy. Negative for Helicobacter organisms by immunohistochemistry. Negative for intestinal metaplasia, dysplasia or malignancy. ICD10: R11 GROSS DESCRIPTION: The specimen is received in one formalin filled container labeled with the patient's name, sublabeled "gastric" and consists of a 0.2 x 0.2 x 0.2 CM portion of tissue which is entirely submitted in one cassette. 05/14/2017DC MICRO DESCRIPTION: An immunohistochemical stain was performed to evaluate for Helicobacter organisms and is negative. The control stain showed appropriate reactivity. * This test was developed and its performance characteristics determined by [employer]. It has not been cleared or approved by the U.S. Food and Drug Administration. The FDA has determined that such clearance or approval is not necessary. This test is used for clinical purposes. It should not be regarded as investigational or for research. ICD-9 CODES: CPT CODES: 1: 62020, 16753 Electronically Signed Out Reuben Heart MD, Ph.D. [facility] [address], [place] [address] Technical component performed at [facility], [facility] [address], [place], [address]
== END 2017-05-15 18:30 | disposition home or self-care (01) | DRG 645 ==
LOC: SED 16:31 → OBSVTOIN 21:40 → OSC 21:40
PROVIDERS: ADMIT Hospitalist; ATTEND Internal Medicine
PROC: 0DB64ZZ Excision of Stomach, Percutaneous Endoscopic Approach (ICD-10-PCS; principal; 2017-05-13 16:00)
DX: E27.40 Unspecified adrenocortical insufficiency (principal); K29.70 Gastritis, unspecified, without bleeding; K58.9 Irritable bowel syndrome, unspecified; E87.6 Hypokalemia; G43.909 Migraine, unspecified, not intractable, without status migrainosus; F41.9 Anxiety disorder, unspecified; E66.9 Obesity, unspecified; Z68.37 Body mass index [BMI] 37.0-37.9, adult; J45.909 Unspecified asthma, uncomplicated; F43.12 Post-traumatic stress disorder, chronic

== ENCOUNTER 2017-06-06 17:26 | Emergency (ER) | payer MEDICARE ==
[~2017-06-06] VITALS: Ht 172.7 cm; Wt 109.1 kg
[~2017-06-06 17:26] MED LIST: ALBU2.5V4 INHALATION; ALBU8.5H2 INHALATION; ASCO-294 PO; BDS.4IN PO; CYAN10008 PO; EPIN0.3P2 IJ; ERGO2000 PO; FEG324 PO; FLUD0.1T PO; HYDR-4003 PO; HYDR10TA12 PO; ONDA8TAB10 PO; OXYC1TAB24 PO; PANT20T PO; PRAZ2CAP2 PO; SERT100T9 PO; TOPI-59 PO; TRAZ-118 PO
[2017-06-06 17:40] VITALS: BP 140/58; PULSE 89; RESP 18; O2SAT 96
--- NOTE | 2017-06-06 18:17 | ED.REPORT ---
HPI-General Illness Date of Service Jun 06, 2017 ED Provider: Stevie Aranda MD A 32 year old female with a history of Keatchie's disease, melanoma and anxiety is brought to the ED via EMS due to an adverse reaction to an iron dextran infusion. The pt was given the infusion at [facility] yesterday for her Keatchie's disease and quickly began to experience chest tightness, nausea and blurred vision. The infusion was slowed down over 5.5 hours, but the pt has continued to experience these symptoms. She also complains of headache, weakness , fatigue, chills, diffuse itching and vomiting. These symptoms have worsened throughout the day. She denies shortness of breath, fever or diaphoresis. The pt called a nurse at [facility] at 17:00 today, who recommended that she use an EpiPen and call paramedics. Her last menstrual period was two weeks ago. Nursing Notes Stated Complaint: ADVERSE REACTION Chief Complaint: Allergic Reaction Nursing Notes Reviewed: Yes Allergies: Coded Allergies: Penicillins (Verified Allergy, Severe, hives, 05/07/17) egg (Verified Allergy, Severe, Anaphylaxis, 05/07/17) gabapentin (Verified Allergy, Severe, anaphylaxis, 05/07/17) iron dextran complex (Verified Allergy, Severe, anaphylaxis, 05/07/17) morphine (Verified Adverse Reaction, Severe, 05/07/17) Scheduled Ascorbate Calcium (Vitamin C) 500 Mg Tablet 500 MG PO DAILY Budesonide (Pulmicort Flexhaler) 60 Puff/Inh Inhaler 2 PUFFS PO BID Cyanocobalamin (Vitamin B-12) (Vitamin B-12) 1,000 Mcg Tablet 2,000 MCG PO BID Ergocalciferol (Vitamin D2) (Vitamin D2) 2,000 Unit Tablet 50,000 UNIT PO DAILY Ferrous Gluconate (Ferrous Gluconate) 324 Mg Tab 648 MG PO DAILY Fludrocortisone Acetate (Fludrocortisone Acetate) 0.1 Mg Tablet 0.1 MG PO DAILY Hydrocortisone (Hydrocortisone) 10 Mg Tablet 40 MG PO DAILY Hydrocortisone (Hydrocortisone) 10 Mg Tablet 20 MG PO 12,[address] (Protonix) 20 Mg Tablet 20 MG PO BID Prazosin (Prazosin) 2 Mg Capsule 4-6 MG PO HS Sertraline HCl (Sertraline) 100 Mg Tablet 200 MG PO HS Topiramate (Topiramate) 25 Mg Tablet 50 MG PO DAILY Topiramate (Topiramate) 25 Mg Tablet 25 MG PO HS Scheduled PRN Albuterol HFA (Proair HFA) 8.5 Gm Hfa.aer.ad 2 PUFFS INHALATION Q4H PRN PRN ASTHMA Albuterol Neb Soln (Albuterol Neb Soln) 2.5 Mg/3 Ml Vial.neb 2.5 MG INHALATION Q4H PRN PRN ASTHMA Epinephrine (Epipen 2-Selvin) 0.3 Mg/0.3 Ml Auto.injct 0.3 MG IJ DIRECTED PRN PRN ALLERGY Hydrocodone-Acetaminophen 5-325 mg (Hydrocodone-Acetaminophen 5-325 mg) 1 Each Tablet 1 TABLET PO Q4H PRN PRN For Pain Ondansetron ODT (Ondansetron ODT) 8 Mg Tab.rapdis 8 MG PO TID PRN PRN For Nausea Trazodone (Trazodone) 100 Mg Tablet 100-150 MG PO HS PRN PRN INSOM oxyCODONE-Acetaminophen 5-325 mg (oxyCODONE-Acetaminophen 5-325 mg) 1 Each Tablet 1 TAB PO Q6H PRN PRN For Pain General Time Seen by MD: 18:17 Chief Complaint Other (Adverse reaction) Hx Obtained From: Patient, EMS Arrived By: Ambulance Sudden in Onset?: Yes Onset Occurred: 1 day ago Symptom Duration: Since onset Recent Healthcare: Recent doctor visit, Recent hospitalization Similar Sx Previous: No Past Medical History Past Medical History Notes: Hematology/oncology: Dr. Sonny Kumar Past Medical History Keatchie's disease asthma anxiety PTSD melanoma adrenal insufficiency Past Surgical History kidney stent left shoulder repair melanoma removals Reports: , Tonsillectomy Smoking History Never Smoker Social History Alcohol Use: Denies alcohol use Drug Use: Denies drug use Ambulatory Status Independent Review of Systems Full Review of Systems Constitutional: Reports: Chills, Fatigue, Weakness - generalized, Denies: Fever Eyes: Reports: Blurred bilateral Respiratory: Denies: Non-productive cough, Shortness of breath Cardiovascular: Denies: Chest pain GI: Reports: Nausea, Vomiting, Denies: Abdominal pain, Diarrhea Musculoskeletal: Denies: Back pain, Neck pain Skin: Reports Itching (diffuse) Neurologic: Reports: Headache Complete sys rev & neg: except as marked. Physical Exam Vital Signs Vital Signs Date Time Temp Pulse Resp B/P Pulse Ox O2 Delivery O2 Flow Rate FiO2 06/06/17 21:40 39.9 74 20 116/60 96 Room Air 06/06/17 21:31 36.9 74 20 116/60 96 Room Air 06/06/17 17:40 36.9 89 18 140/58 96 Room Air Initial VS: Reviewed General/Constitutional: Awake, Alert Head / Eyes: Normocephalic, PERRL, EOMI post operative changes to the left side of the face mild facial asymmetry, appears to be chronic ENT: Atraumatic, Airway patent, Mucous membranes moist no oropharyngeal swelling Neck: Atraumatic, Supple, Full range of motion Respiratory / Chest: Atraumatic, Breath sounds NL, Breath sounds = bilat, No respiratory distress Cardiovascular: Heart rate NL, Regular rhythm, Heart sounds NL, No gallop, No murmurs, No rubs Abdomen: Atraumatic, Soft, Non-tender Back: Atraumatic, Full range of motion Upper Extremities Upper Extremity / MS: Atraumatic, Full range of motion Lower Extremity / Pelvis / MS: Atraumatic, Full range of motion Skin: Color NL, No rash, Warm, Dry Neurologic: Oriented X3, Speech NL, No motor deficits, No sensory deficits Psychiatric: Affect NL, Mood NL Interpretation & Diagnostics Lab Results Interpretation Result Diagram: 06/06/17182906/06/171829 Test 06/06/17 18:06 06/06/17 18:30 Hold Purple Top Tube Received (Received) Hold Blue Top Tube Received (Received) Hold Red Top Tube Received (Received) Hold Benedict Top Tube Received (Received) White Blood Count 9.1th/mm3 (3.8-10.1) Red Blood Count 4.16mil/mm3 (3.90-5.20) Hemoglobin 12.0g/dL (12.0-15.6) Hematocrit 36.9% (35.0-46.0) Mean Corpuscular Volume 88.7fL (81-100) Mean Corpuscular Hemoglobin 28.8pg (27.0-35.0) Mean Corpuscular Hemoglobin Concent 32.5% (32.0-37.0) Red Cell Distribution Width 15.3% (12.3-15.4) Platelet Count 191bil/L (150-400) Neutrophils (%) (Auto) 72.9% (40-74) Lymphocytes (%) (Auto) 21.0% (14-46) Monocytes (%) (Auto) 4.6% (4-12) Eosinophils (%) (Auto) 0.6% (0-5) Basophils (%) (Auto) 0.2% (0-3) Sodium Level 138mEq/L (134-144) Potassium Level 4.0mEq/L (3.5-5.2) Chloride Level 105mEq/L (97-108) Carbon Dioxide Level 20mmol/L (18-29) Blood Urea Nitrogen 12mg/dL (6-20) Creatinine 1.00mg/dL (0.57-1.00) Estimat Glomerular Filtration Rate 91mL/min (>59) Glucose Level 125mg/dL (60-99) Calcium Level 8.7mg/dL (8.5-10.1) Total Bilirubin < 0.2mg/dL (0.0-1.2) Aspartate Amino Transf (AST/SGOT) 12U/L (0-50) Alanine Aminotransferase (ALT/SGPT) < 5U/L (0-32) Alkaline Phosphatase 72U/L (25-150) Troponin T < 0.010ug/L (0.0-0.011) Total Protein 6.7g/dL (6.4-8.4) Albumin 3.9g/dL (3.4-5.0) Hold Stauffer Top Tube Received (Received) ECG Interpretation ECG Interpretation: normal sinus rhythm with a rate of 80 Time: 18:41 Interpreted by: ED physician X-Ray Chest Interpretation Chest Xray Interpretation: IMPRESSION: No acute process. Dictated by: Crystal Colindres M.D. on 06/06/2017 at 19:08 Approved by: Crystal Colindres M.D. on 06/06/2017 at 19:08 Interpretation / Wet Read by: Interpret - Radiologist CT Head Interpretation IMPRESSION: No acute intracranial abnormality. Dictated by: Crystal Colindres M.D. on 06/06/2017 at 20:03 Approved by: Crystal Colindres M.D. on 06/06/2017 at 20:04 Interpretation / Wet Read by: Interpret - Radiologist Re-Eval/Medical Decision Source of Hx: Old records Time of Eval: 21:19 Patient Status: Condition improved Re-Evaluation/Progress Note: Pt rechecked, whose condition has improved. The diagnosis and plan for discharge are discussed. The pt understands and agrees with the plan. All questions are addressed at this time. Counseled Regarding: Diagnosis, Lab results, Need for follow-up, When/why to return to ED Discharge & Departure Departure Notes T 39.9 entered in error by staff at discharge. Pt was not febrile at DC Primary Impression: Adverse reaction to drug Encounter type: initial encounter Qualified Code: T88.7XXA - Unspecified adverse effect of drug or medicament, initial encounter Additional Impression: Chest pain Chest pain type: other chest pain Qualified Code: R07.89 - Other chest pain Disposition: Home Discharge Condition All VS Reviewed: Yes Condition: Stable Additional Instructions: Emergency Department evaluation included Examination, Left, CT Brain ECG and Chest X-Ray. No Serious Acute Medical Issue Is Identified Tonight. This may well be an adverse reaction to iron infusion but does not appear to be anaphylaxis and should resolve with time. Use tylenol for headaches and continue other home medications. Follow up with primary care next week. Return to ED for fevers, vomiting, increasing chest pain. Referrals: OTHER,PHYSICIAN (PCP) Scribe Attestation Portions of this note were transcribed by Asif Naylor. I, Dr. Aranda personally performed the history, physical exam and medical decision-making; I reviewed and confirmed the accuracy of the information in the transcribed note. Stevie Aranda MD Jun 06, 2017 18:17 ASIF NAYLOR Jun 06, 2017 18:59
[2017-06-06 18:41] LABS: BASOPHILS % (AUTO) 0.2 % (0-3); EOSINOPHILS % (AUTO) 0.6 % (0-5); MONOCYTES % (AUTO) 4.6 % (4-12); Mean Corpuscular Hemoglobin 28.8 pg (27.0-35.0); Mean Corpuscular Volume 88.7 fL (81-100); NEUTROPHILS % (AUTO) 72.9 % (40-74); Platelet Count 191 bil/L (150-400)
--- NOTE | 2017-06-06 19:10 | DRSVH ---
PROCEDURE: X-RAY CHEST ONE VIEW, PORTABLE ([id number]) INDICATIONS: sob TECHNIQUE: One view of the chest was acquired. COMPARISON: [facility], CR, XR CHEST 1VW (PORTABLE), 05/07/2017, 20:06. FINDINGS: Surgical changes and devices: None. Lungs and pleura: No pleural effusions or pneumothorax. Lungs are clear. Mediastinum: Mediastinal contours appear normal. Heart size is normal. Bones and chest wall: No suspicious bony lesions. Overlying soft tissues appear unremarkable. IMPRESSION: No acute process. Dictated by: Crystal Colindres M.D. on 06/06/2017 at 19:08 Approved by: Crystal Colindres M.D. on 06/06/2017 at 19:08
--- NOTE | 2017-06-06 20:05 | DRSVH ---
PROCEDURE: CT BRAIN WITHOUT CONTRAST ([id number]) INDICATIONS: headache TECHNIQUE: Noncontrast 4.5 mm thick angled axial sections acquired from the foramen magnum to the vertex, with c oronal reformats. COMPARISON: [facility], CT, CT BRAIN WO CON, 05/07/2017, 21:32. FINDINGS: Image quality: Excellent. CSF spaces: Basal cisterns are patent. No extra-axial fluid collections. Ventricles are normal in size and shape. Brain: No midline shift. No intracranial masses or hemorrhage. Langford-white matter interface is norm al. Skull and face: Calvarium and visualized facial bones are intact, without suspicious lesions. Sinuses: Visualized sinuses and mastoids are clear. IMPRESSION: No acute intracranial abnormality. Dictated by: Crystal Colindres M.D. on 06/06/2017 at 20:03 Approved by: Crystal Colindres M.D. on 06/06/2017 at 20:04
[2017-06-06 21:31] VITALS: BP 116/60; PULSE 74; RESP 20; O2SAT 96
[2017-06-06 21:40] VITALS: BP 116/60; PULSE 74; RESP 20; O2SAT 96
== END 2017-06-06 21:47 | disposition home or self-care (01) ==
LOC: SED 17:26 → EDBD 17:26 → SED 21:47
DX: R07.89 Other chest pain (principal); H53.8 Other visual disturbances; R11.2 Nausea with vomiting, unspecified; R51 Headache; R53.1 Weakness; R53.83 Other fatigue; R68.83 Chills (without fever); L29.9 Pruritus, unspecified; T45.4X5A Adverse effect of iron and its compounds, initial encounter; Y93.89 Activity, other specified; Y92.89 Other specified places as the place of occurrence of the external cause; Y99.8 Other external cause status; F41.9 Anxiety disorder, unspecified; J45.909 Unspecified asthma, uncomplicated; E27.1 Primary adrenocortical insufficiency; Z85.820 Personal history of malignant melanoma of skin; Z98.890 Other specified postprocedural states; Z88.0 Allergy status to penicillin; Z88.5 Allergy status to narcotic agent; Z88.8 Allergy status to other drugs, medicaments and biological substances; Z91.012 Allergy to eggs